=== PATIENT | male | born 1975 ===

== ENCOUNTER 2022-12-10 07:01 | Emergency (ER) | payer OTHER, SELFPAY ==
[2022-12-10 07:06] VITALS: BP 165/88; PULSE 115; RESP 22; TEMP 37.2; O2SAT 96
[2022-12-10 07:22] VITALS: O2SAT 98
--- NOTE | 2022-12-10 07:23 | PC.NURSE ---
Pt c/o body aches, lethargy, congestion & fever. States recenetly went to a concert & voices concerns of COVID. Pt with mask
--- NOTE | 2022-12-10 07:30 | ED.URI ---
HPI - URI/Sore Throat General Chief Complaint: Upper Respiratory Infection Stated Complaint: bodyaches Time Seen by Provider: 12/10/22 07:14 History of Present Illness HPI Narrative: Patient is a 47-year-old male who presents ER with a concern for an upper respiratory infection. Reports that he began having sinus congestion and sore throat. He has been restless throughout the night. He is feeling febrile today. He was recently at a concert over the weekend. No known sick contacts. No chest pain or chest pressure. No exertional fatigue or dyspnea. Related Data Allergies Allergy/AdvReac Type Severity Reaction Status Date / Time No Known Allergies Allergy Verified 12/10/22 08:18 Review of Systems Review of Systems: All systems reviewed & are unremarkable except as noted in HPI and below Constitutional: Constitutional: Reports chills, Reports fatigue and Reports fever(s) ENT: Reports nasal congestion and Reports sore throat Cardiovascular: Cardiovascular: Reports no additional cardiovascular complaints Respiratory: Respiratory: Reports cough, Denies excessive phlegm production, Denies dyspnea and Denies wheezing PMFSH Past Medical History Medical History (Updated 12/10/22 @ 09:19 by Oscar Riojas MD) Anxiety Surgical History Surgical History (Updated 12/10/22 @ 07:34 by Oscar Riojas MD) History of back surgery Exam Narrative: GENERAL: Well-appearing, well-nourished, and in no acute distress. HEAD: Normocephalic, atraumatic. CHEST: Clear to auscultation. No respiratory distress. HEART: Regular rate and rhythm. Normal peripheral pulses. EXTREMITIES: Normal range of motion. No edema. SKIN: Warm, dry, no rash. NEURO: Alert and oriented x3. PSYCH: Normal mood and affect. Course Course Emergency Course: Patient febrile here but took Tylenol just prior to arrival. No abnormal lung sounds. No hypoxia. [place] appropriate for discharge. Will send home with Meghan. Vital Signs Vital signs: Vital Signs Temperature 99 F 12/10/22 07:06 Pulse Rate 115 H 12/10/22 07:06 Respiratory Rate 22 H 12/10/22 07:06 Blood Pressure 165/88 H 12/10/22 07:06 Pulse Oximetry 96 12/10/22 07:06 Oxygen Delivery Room Air 12/10/22 07:06 Temperature 100.5 F H 12/10/22 08:15 Pulse Rate 108 H 12/10/22 08:15 Respiratory Rate 18 12/10/22 08:15 Blood Pressure 127/75 12/10/22 08:15 Pulse Oximetry 96 12/10/22 08:15 Oxygen Delivery Room Air 12/10/22 07:22 MDM - URI/Sore Throat MDM Narrative Medical decision making narrative: Medical decision making narrative: -Presentation: 47-year-old male presents with fever/sinus congestion and sore throat. -DDX includes but is not limited to: URI, COVID, flu, pneumonia. -Co-morbidities complicating care: None -Social determinants of health: Patient does nahum. -External Chart Review: History from 11/2016 -Hx from independent Sources: Patient -Independent interpretation of studies: COVID-positive. -Discussion of Management/Consultants: none -Dx tests considered but not ordered: none -Procedures: none -Interventions: none -Shared decision making / Disposition: Discussed supportive care treatment at home including Tylenol/ibuprofen/hydration. Discussed masking for 5 days after self-isolation for 5 days -RX: Paxlovid. Lab Data Labs: Lab Results 12/10/22 Range/Units 07:11 Influenza A (RT-PCR) Negative (Negative) Influenza B (RT-PCR) Negative (Negative) SARS-CoV-2 RNA (RT-PCR) Positive A (Negative) Discharge Plan Discharge Clinical Impression: COVID-19 Patient Disposition: Home, Self-Care Condition: Stable Instructions: COVID-19 (Coronavirus Disease 2019) (ED) Additional Instructions: You should self isolate until 12/14/2022, you should then wear a mask when out in public for the next 5 days after that. You may take Paxlovid to help with your symptoms. Follow-up wi
[2022-12-10 08:15] VITALS: BP 127/75; PULSE 108; RESP 18; TEMP 38.1; O2SAT 96
[2022-12-10 08:17] VITALS: BP 112/62; O2SAT 97
[2022-12-10 08:30] VITALS: O2SAT 98
--- NOTE | 2022-12-10 08:48 | PC.NURSE ---
RN called lab inquiring about COVID result. Per solar lab technician it should be done in 13 minutes. Pt & informed
[2022-12-10 08:56] LABS: Influenza A QL RT-PCR Negative (Negative); Influenza B QL RT-PCR Negative (Negative); SARS-CoV-2 RNA PCR Positive (Negative)
== END 2022-12-10 09:40 | disposition home or self-care (01) ==
PROVIDERS: Emergency Provider Emergency Medicine; PCP Internal Medicine
DX: U07.1 COVID-19 (principal)
CPT/HCPCS: 87636; 99283

== ENCOUNTER 2023-10-06 11:15 | Outpatient (CLI) | payer OTHER, SELFPAY ==
[2023-10-06 11:57] LABS: Basophils Absolute Auto 0.1 K/mm3 (0.0-0.1); Basophils Percent Auto 0.9 % (0.2-1.2); Eosinophils Absolute Auto 0.1 K/mm3 (0-0.3); Eosinophils Percent Auto 1.1 % (0-4.4); Hematocrit 51.8 % (42.0-52.0); Hemoglobin 17.4 g/dL (14.0-18.0); Immature Granulocyte Absolute 0.07 K/mm3 (0.00-0.031); Immature Granulocyte Percent A 0.6 % (0-0.5); Lymphocytes Absolute Auto 2.06 K/mm3 (0.9-3.2); Lymphocytes Percent Auto 16.2 % (18.3-44.2); Mean Corpuscular HGB Conc 33.6 g/dl (32-36); Mean Corpuscular Hemoglobin 31.4 pg (26-34); Mean Corpuscular Volume 93.3 fl (80-100); Mean Platelet Volume 9.6 fl (7.4-10.4); Monocytes Absolute Auto 0.9 K/mm3 (0.1-0.6); Monocytes Percent Auto 6.8 % (2.6-8.5); Neutrophils Absolute Auto 9.5 K/mm3 (1.3-6.7); Neutrophils Percent Auto 74.4 % (45.5-73.1); Platelet Count Result 381 k/mm3 (150-375); Red Blood Count 5.55 M/mm3 (4.6-6.20); Red Cell Distribution Width 14.7 % (11.5-14.5); White Blood Count 12.7 K/mm3 (4.5-10.0)
== END 2023-10-06 11:16 | disposition home or self-care (01) ==
LOC: ANHLAB 11:17
PROVIDERS: PCP Internal Medicine; Visit Provider Nurse Practitioner
DX: R53.83 Other fatigue (principal); K92.1 Melena
CPT/HCPCS: 36415; 85025

== ENCOUNTER 2023-10-21 07:00 | Outpatient (NON) | payer OTHER, SELFPAY | END 2023-10-21 07:01 | disposition home or self-care (01) | LOC: ANHLAB 10-23 09:04 | PROVIDERS: PCP Internal Medicine; Visit Provider Internal Medicine Gastroenterology | DX: K92.1 Melena (principal) | CPT/HCPCS: 88305 ==

== ENCOUNTER 2023-10-21 10:22 | Day surgery (SDC) | payer OTHER, SELFPAY ==
[2023-10-07 10:39] VITALS: BMI 33.6
[2023-10-12 10:25] VITALS: BMI 33.5
--- NOTE | 2023-10-21 11:00 | WPDHPUPDATE1 ---
History and Physical Update Update Date/Time: 10/21/23 11:00 History and Physical has been reviewed, including an updated exam of the patient. There are NO changes in the patient's condition. Risks, benefits, and alternatives have been discussed and questions answered. Patient agrees to proceed with procedure.
[2023-10-21 11:02] VITALS: BP 119/80; PULSE 57; RESP 18; TEMP 36.6; O2SAT 98
[2023-10-21] MEDS: LACTATED RINGERS 1,000 ML 150 ML IV CONT (11:07)
--- NOTE | 2023-10-21 11:45 | WPDANESEPPF ---
Anes - Initial Pre Proc Eval Procedure: Operation Date: 10/21/23 12:00 Proposed Procedures p Diagnostic Colonoscopy - Syed Ramsay MD Date/Time: 10/21/23 11:45 Surgeon: Syed Ramsay MD Pre Op Diagnosis: Melena, other fatigue Patient Data Age: 48 Gender: M Height: 1.83 m Weight: 114.55 kg Last Vital Signs Temp 36.6 C 10/21/23 11:02 Pulse 57 L 10/21/23 11:02 Resp 18 10/21/23 11:02 BP 119/80 10/21/23 11:02 Pulse Ox 98 10/21/23 11:02 O2 Del Method Room Air 10/21/23 11:02 Allergies Allergy/AdvReac Type Severity Reaction Status Date / Time No Known Allergies Allergy Verified 10/21/23 10:50 Home Medications Medication Instructions Recorded Confirmed Type albuterol sulfate 2 mg tablet 2 mg PO .prn 10/06/23 10/12/23 History alprazolam 2 mg tablet 2 mg PO BID 10/06/23 10/21/23 History hydrocodone bitartrate 10 mg 10 mg PO Q12H 10/06/23 10/21/23 History capsule, oral only, extended rel 12 hr Patient hx anesthesia problems: none Family hx anesthesia problems: none Results Review: All pre-operative results and documents have been reviewed as part of the pre-operative evaluation. [facility] Past Medical History Medical History (Updated 10/21/23 @ 11:45 by Jase Ramirez MD) Anxiety Chronic back pain Snoring Surgical History Surgical History History of back surgery Social History Social History Smoking status: Never smoker Alcohol intake: never Substance use: current Substance use type: marijuana Living arrangements: alone Spiritual care concerns: No Anes - Eval Final PreProcedure Day of Procedure 10/21/23 11:45 Patient weight: obese Heart: regular rate and rhythm Lungs: clear to auscultation Airway: Mallampati scale class II Neurological: alert and oriented Last oral intake: >/= 8 hours ASA classification: III Emergent: no Anesthetic plan: proceed Anesthesia type and monitoring: general GIVS and standard monitoring Results Review: All pre-operative results and documents have been reviewed as part of the pre-operative evaluation. Informed Consent: The patient's anesthetic plan and its attendant risks and benefits were discussed with the patient/family/POA. Questions were solicited and answers provided to the satisfaction of the patient/family/POA.
[2023-10-21 12:08] VITALS: BP 100/55; PULSE 67; RESP 16; O2SAT 95
[2023-10-21 12:18] VITALS: BP 101/61; PULSE 66; RESP 16; O2SAT 98
[2023-10-21 12:28] VITALS: BP 112/66; PULSE 58; RESP 18; O2SAT 99
--- NOTE | 2023-10-21 12:48 | WPDANESPN ---
Anes - Prog Note Post-Op Date/Time: 10/21/23 12:48 Cardiovascular status: normal Respiratory status: normal Airway patency: baseline Mental status: baseline Post-Op hydration status: normal Vital Signs: Last Vital Signs Temp 36.6 C 10/21/23 11:02 Pulse 58 L 10/21/23 12:28 Resp 18 10/21/23 12:28 BP 112/66 10/21/23 12:28 Pulse Ox 99 10/21/23 12:28 O2 Del Method Room Air 10/21/23 12:28 Pain Score (VAS): 0/10 I/O: Intake & Output 10/20/23 10/21/23 10/21/23 23:59 07:59 15:59 Intake Total 600 Balance 600 Patient Feedback: Patient satisfied with anesthetic care.
== END 2023-10-21 12:36 | disposition home or self-care (01) ==
PROVIDERS: PCP Internal Medicine; Visit Provider Internal Medicine Gastroenterology
PROC: 0DJD8ZZ Inspection of Lower Intestinal Tract, Via Natural or Artificial Opening Endoscopic (ICD-10-PCS; CPT 45378; principal; 2023-10-21 12:00)
DX: K92.1 Melena (principal); D12.5 Benign neoplasm of sigmoid colon; K57.30 Diverticulosis of large intestine without perforation or abscess without bleeding; K64.8 Other hemorrhoids
CPT/HCPCS: 45385

== ENCOUNTER 2024-09-29 09:37 | Emergency (ER) | payer OTHER, SELFPAY ==
--- NOTE | ~2024-09-29 | CT_ITS ---
EXAMINATION: CT abd pelvis lumbar wo con DATE: 09/29/2024 10:44 INDICATION: Left flank pain. TECHNIQUE: Computed tomography (CT) of the abdomen, pelvis and lumbar spine was performed without int ravenous contrast. The dose-length product was 826.37 mGy-cm. Automated exposure control and iterativ e reconstruction technique were employed. COMPARISON: CT lumbar spine dated 11/24/2016 FINDINGS: Abdomen/pelvis: Lung bases unremarkable. Heart size is normal. No significant pleural or pe ricardial effusion. Small fat-containing umbilical hernia. Enlarged prostate gland. Punctate 1 mm non obstructing left renal stone. No hydronephrosis or ureteral stone. Nonobstructive bowel gas pattern. The liver, spleen, pancreas, adrenal glands and right kidney are unremarkable. No significant vascula r abnormality. No lymphadenopathy. Lumbar spine: Chronic left L5 pars interarticularis defect. There is disc narrowing at L3-4 and L4-5. There is levocurvature of the lumbar spine. There is facet hypertrophy at L4-5 and L5-S1. IMPRESSION: 1. Nonobstructing punctate 1 mm left renal stone. 2: Mild-moderate lumbar spondylosis. Reviewed, dictated and finalized at location B.
[2024-09-29 09:40] VITALS: BP 138/97; PULSE 93; RESP 18; O2SAT 97
[2024-09-29 09:48] VITALS: BP 138/97; PULSE 93; RESP 18; TEMP 36.6; O2SAT 97
[2024-09-29 09:58] LABS: Basophils Absolute Auto 0.1 K/mm3 (0.0-0.1); Basophils Percent Auto 0.9 % (0.2-1.2); Eosinophils Absolute Auto 0.3 K/mm3 (0-0.3); Eosinophils Percent Auto 2.4 % (0-4.4); Hematocrit 49.1 % (42.0-52.0); Hemoglobin 16.9 g/dL (14.0-18.0); Immature Granulocyte Absolute 0.05 K/mm3 (0.00-0.031); Immature Granulocyte Percent A 0.4 % (0-0.5); Lymphocytes Absolute Auto 1.38 K/mm3 (0.9-3.2); Lymphocytes Percent Auto 10.2 % (18.3-44.2); Mean Corpuscular HGB Conc 34.4 g/dl (32-36); Mean Corpuscular Hemoglobin 31.5 pg (26-34); Mean Corpuscular Volume 91.6 fl (80-100); Monocytes Percent Auto 7.3 % (2.6-8.5); Neutrophils Absolute Auto 10.7 K/mm3 (1.3-6.7); Neutrophils Percent Auto 78.8 % (45.5-73.1); Platelet Count Result 278 k/mm3 (150-375); Red Blood Count 5.36 M/mm3 (4.6-6.20); Red Cell Distribution Width 14.6 % (11.5-14.5); White Blood Count 13.5 K/mm3 (4.5-10.0)
[2024-09-29 10:00] LABS: Add Urine Microscopic? NO; Appearance Urine Clear (Clear); Bilirubin Urine Negative (Negative); Blood Urine Negative (Negative); Color Urine Yellow (Yellow); Glucose Urine UA Negative (Negative); Ketones Urine Negative (Negative); Leukocyte Esterase Ur Negative LEU/UL (Negative); Nitrate Urine Negative (Negative); Protein Urine Negative (Negative); Specific Grav Ur 1.015 (1.001-1.035); Urobilinogen Urine 0.2 mg/dL (<2.0)
[2024-09-29 10:07] LABS: Alanine Aminotransferase 25 U/L (6-50); Albumin Level 4.8 g/dL (3.5-5.1); Alkaline Phosphatase 71 U/L (38-126); Anion Gap 9 mmol/L (4-12); Aspartate Amino Transferase 26 U/L (17-59); Bilirubin,Total 0.6 mg/dL (0.2-1.3); Blood Urea Nitrogen 13 mg/dL (9-20); Calcium 9.3 mg/dL (8.4-10.2); Carbon Dioxide 24 mmol/L (22-30); Chloride 105 mmol/L (98-107); Estimated CRCL calculation 92 ml/min; Estimated Glomerular Filt Rate > 60; Glucose 107 mg/dL (65-110); Potassium 4.5 mmol/L (3.4-5.0); Sodium 138 mmol/L (137-145)
--- NOTE | 2024-09-29 10:09 | ED_ITS ---
HPI - Back Pain/Injury General Chief Complaint: Back Pain/Injury Stated Complaint: back pain Time Seen by Provider: 09/29/24 09:39 Source: patient Mode of arrival: ambulatory Limitations: no limitations History of Present Illness HPI Narrative: Patient is a 48-year-old male who presents the ED with report of L flank pain. Patient reports he woke up around 4:00 a.m. this morning with the pain. Present in his left flank, does radiate slightly into his left-sided abdomen. He has history of chronic neck and back pain. Took 1 of his home Ker[place] this morning, but denied improvement. Pain is worse with any type of movement. 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 Denies nausea, vomiting, dysuria, hematuria, fevers, history of kidney stones. Related Data Home Medications ?Medication ?Instructions ?Recorded ?Confirmed ?Last Taken ?Type albuterol sulfate 2 mg tablet 2 mg PO .prn 10/06/23 10/12/23 Unknown History alprazolam 2 mg tablet 2 mg PO BID 10/06/23 10/21/23 10/12/23 History hydrocodone bitartrate 10 mg 10 mg PO Q12H 10/06/23 10/21/23 10/12/23 History capsule, oral only, extended rel 12 hr Allergies Allergy/AdvReac Type Severity Reaction Status Date / Time No Known Allergies Allergy Verified 09/29/24 09:52 Review of Systems 2 Review of Systems: All systems reviewed & are unremarkable except as noted in HPI. All systems reviewed & are unremarkable except as noted in HPI and below PMFSH Past Medical History Medical History Snoring Chronic back pain Anxiety Surgical History Surgical History History of back surgery Social History Social History Smoking status: Never smoker Alcohol intake: never Substance use: current Substance use type: marijuana Living arrangements: alone Spiritual care concerns: No Exam 2 Narrative: GENERAL: Mildly uncomfortable appearing, well-nourished, non-toxic, in no acute distress. HEAD: Normocephalic, atraumatic. RESPIRATORY: Airway patent, respirations nonlabored. Clear to auscultation bilaterally, no rales, rhonchi, wheezing. CARDIOVASCULAR: Regular rate and rhythm without murmurs, rubs, or gallops. ABDOMINAL: Soft, no significant tenderness throughout abdomen, nondistended. Normoactive BS. MUSCULOSKELETAL: Moves all extremities. No gross deformities. Tenderness to palpation in left mid back region, discomfort reported with any movement. No significant midline spinal tenderness. No palpable bony deformities. SKIN: Warm, dry, normal color. NEURO: A&O X3. Speech clear. No ataxic movements. PSYCHIATRIC: Appropriate mood and affect. Normal interaction. Course Vital Signs Vital signs: Vital Signs Pulse Rate 93 09/29/24 09:40 Respiratory Rate 18 09/29/24 09:40 Blood Pressure 138/97 H 09/29/24 09:40 Pulse Oximetry 97 09/29/24 09:40 Oxygen Delivery Room Air 09/29/24 09:40 Temperature 97.8 F 09/29/24 09:48 Pulse Rate 68 09/29/24 10:58 Respiratory Rate 18 09/29/24 10:58 Blood Pressure 125/77 09/29/24 10:58 Pulse Oximetry 97 09/29/24 10:58 Oxygen Delivery Room Air 09/29/24 09:40 MDM - Back Pain/Injury MDM Narrative Medical decision making narrative: Patient presented to ED with left flank pain began this morning. History of chronic back and neck pain, but this feels different. No history of kidney stones. Vital signs are stable upon arrival. Patient mildly uncomfortable appearing. Pain medication given. CBC with white blood cell count of 13.5. Stable H& H. CMP is unremarkable. UA is clear, no evidence of blood. CT scan of abdomen/pelvis was obtained and shows left renal stone, 1 mm, no active ureteral stones. No other acute abnormalities. Does show [id number] lumbar spondylosis, consistent with hx of chronic back pain. Patient denying improvement with morphine and Valium. Will give additional pain control including Toradol and muscle relaxers. Suspicious for musculoskeletal etiology. No evidence of cord compression or cauda equina. Low suspicion for pulmonary etiology. Patient denying shortness of breath, cough, hypoxia. PERC negative. Discussed overall reassuring w/u. Updated patient on left renal stone, but advised this is likely not causing his pain. Significant other at bedside does report that pain has been ongoing for quite some time. Feel patient safe for d/c home with pain control. Advised close f/u with PCP for further eval. Given strict return precautions. He agrees with plan. Feels comfortable going home. Discharged in stable condition. Medical Records Attestation: I reviewed the patient's medical records. Lab Data Attestation: I reviewed the patient's lab results. 09/29/24 09:52 09/29/24 09:52 Labs: Lab Results 09/29/24 Range/Units 09:52 WBC 13.5 H (4.5-10.0) K/mm3 RBC 5.36 (4.6-6.20) M/mm3 Hgb 16.9 (14.0-18.0) g/dL Hct 49.1 (42.0-52.0) % MCV 91.6 (80-100) fl MCH 31.5 (26-34) pg MCHC 34.4 (32-36) g/dl RDW 14.6 H (11.5-14.5) % Plt Count 278 (150-375) k/mm3 MPV 9.0 (7.4-10.4) fl Immature Gran % (Auto) 0.4 (0-0.5) % Neut % (Auto) 78.8 H (45.5-73.1) % Lymph % (Auto) 10.2 L (18.3-44.2) % [place] % (Auto) 7.3 (2.6-8.5) % Eos % (Auto) 2.4 (0-4.4) % Baso % (Auto) 0.9 (0.2-1.2) % Lymph # (Auto) 1.38 (0.9-3.2) K/mm3 [place] # (Auto) 1.0 H (0.1-0.6) K/mm3 Eos # (Auto) 0.3 (0-0.3) K/mm3 Baso # (Auto) 0.1 (0.0-0.1) K/mm3 Abs Immat Gran (auto) 0.05 H (0.00-0.031) K/mm3 Absolute Neuts (auto) 10.7 H (1.3-6.7) K/mm3 Absolute Nucleated RBC 0.000 (0.0-0.012) K/mm3 Nucleated RBC % 0.0 (0.0-0.2) % Sodium 138 (137-145) mmol/L Potassium 4.5 (3.4-5.0) mmol/L Chloride 105 (98-107) mmol/L Carbon Dioxide 24 (22-30) mmol/L Anion Gap 9 (4-12) mmol/L BUN 13 (9-20) mg/dL Creatinine 0.95 (0.7-1.3) mg/dL Estim Creat Clear Calc 92 ml/min Estimated GFR > 60 (59 - ) Glucose 107 (65-110) mg/dL Calcium 9.3 (8.4-10.2) mg/dL Total Bilirubin 0.6 (0.2-1.3) mg/dL AST 26 (17-59) U/L ALT 25 (6-50) U/L Alkaline Phosphatase 71 (38-126) U/L Total Protein 8.0 (6.3-8.2) g/dL Albumin 4.8 (3.5-5.1) g/dL Urine Color Yellow (Yellow) Urine Appearance Clear (Clear) Urine pH 5.0 (5.0-9.0) Ur Specific Bledsoe 1.015 (1.001-1.035) Urine Protein Negative (Negative) mg/dL Urine Glucose (UA) Negative (Negative) mg/dL Urine Ketones Negative (Negative) mg/dL Ur Blood (Man) Negative (Negative) Urine Nitrate Negative (Negative) Urine Bilirubin Negative (Negative) Urine Urobilinogen 0.2 (<2.0) mg/dL Leukocyte Esterase Rfl Negative (Negative) BELLA/UL Imaging Data Attestation: I personally reviewed and interpreted this imaging study as follows: Radiologist's impression: ITS Impressions Miscellaneous CT Procedure 09/29/24 11:25 IMPRESSION: 1. Nonobstructing punctate 1 mm left renal stone. 2: Mild-moderate lumbar spondylosis. Discharge Plan Discharge Clinical Impression: Strain of lumbar region Qualifiers: Encounter type: initial encounter Qualified Code(s): S39.012A - Strain of muscle, fascia and tendon of lower back, initial encounter Patient Disposition: Home Condition: Stable Instructions: Antibiotic Form, Acute Low Back Pain (ED), Flank Pain (ED), Lower Back Exercises (ED) Additional Instructions: Continue Tylenol/your home norco and Ibuprofen as needed for pain. You may take 600mg of ibuprofen every 6 hours. You may use ice/heat, lidocaine patches to area of pain. Take muscle relaxers as needed and prescribed. Recommend taking these at night as they may cause sedation. Do not drive, operate heavy machinery, drink alcohol while on muscle relaxers as this may cause further sedation. Recommend limiting heavy lifting, but avoid complete bed rest. Recommend gentle movements throughout the day. Follow-up with your primary care doctor for further evaluation. Return to the ED if you experience worsening or severe pain, recurrent injury, numbness in groin or legs, going to the bathroom without meaning to, unable to keep down food or drink, or any other symptoms of concern. Patient Language: Romanian Prescriptions: New methocarbamol 750 mg tablet 1,500 mg PO TID PRN (Reason: muscle spasm) Qty: 15 0RF lidocaine 5 % adhesive patch,medicated 1 patch topical DAILY Qty: 15 0RF Rx Instructions: leave on most painful area for up to 12 hrs No Action alprazolam 2 mg tablet 2 mg PO BID hydrocodone bitartrate 10 mg capsule, oral only, ER 12hr 10 mg PO Q12H albuterol sulfate 2 mg tablet 2 mg PO .prn Rx Instructions: seasonal Follow-up/Referrals: Britton,Galileo Schmitt MD [Primary Care Provider] - Time of Disposition: 12:30
[2024-09-29] MEDS: ONDANSETRON INJ 4 MG/2 ML VIAL IV PUSH (10:14)
[2024-09-29] MEDS: MORPHINE SULFATE (*CRX) 4 MG/ML INJ IV PUSH (10:14)
--- OUTSIDE RECORDS SUMMARY | 2024-09-29 10:19 | XMS_ITS | Clinical Summary ---
Author Organization [facility] Address [address] [place] [address] Care Team Providers Care Hotel Service Manager Name Role Phone Galileo Jarquin MD Primary Care Provider Galileo Jarquin MD Unavailable [phone] Source Comments [facility],non-owned Affiliates and Associated Physician Practices is amultiple site organization consisting of ambulatory clinics and hospital sitesin [place] and [place]. This disclosure is being madepursuant to the Care Everywhere program and may not contain all information available regarding this patient. Last updated 18.[facility] Allergies No known active allergies Medications * Be aware that medications may not be up to date on this document. Alwaysverify current medications with the patient. ALPRAZolam (XANAX) 2 MG tablet 0.5 (one-half) tablet 3 times daily 1 6 Active cyclobenzaprine (FLEXERIL) 10 MG tablet 1 (one) tablet 3 times daily 1 6 Active HYDROcodone-acet aminophen (NORCO) 7.5-325 MG tablet TAKE ONE TABLET FOUR TIMES A DAY FOR DX M54.5 AND M51.27 1 Active sildenafil (VIAGRA) 100 MG tablet TAKE 1 TABLET BY MOUTH NEEDED ONE HOUR BEFORE SEXUAL ENCOUNTER 1 Active tamsulosin (Flomax) 0.4 MG capsuleIndicatio ns:Benign Prostatic Hypertrophy Take 1 (one) capsule by mouth once daily At the same time every day after a meal. Reasons: Benign Enlargement of Prostate 90 capsule 4 Active Encounters Date Type Department Care Team Description 09/27/2024 Telephone [facility] - Urology [address] [place] [address] Grisel Joyce DO Surgery Scheduling (Attempted to reach the patient to schedule surgery/procedure with Grisel Joyce DO. Left voicemail to return my call ALEXANDRA, sendign NPL as I have yet to hear back in over 30 days. Cassandra Pack 09/27/2024 4:55 PM ) 08/16/2024 Telephone [facility] - Urology [address] [place] [phone] Grisel Joyce DO Surgery Scheduling (Attempted to reach the patient to schedule surgery/procedure with Grisel Joyce DO. Left voicemail to return my call ALEXANDRA Trujillogerardo Pack 08/16/2024 9:47 AM ) 08/11/2024 2:30 PM CDT Office Visit [facility] - Urology [address] [place] [address] [address] [place] [id number] Grisel Joyce DO Impotence due to erectile dysfunction (Primary Dx); Erectile dysfunction due to diseases classified elsewhere; Neuropathy; Pre-op testing 08/11/2024 Travel 07/07/2024 Telephone [facility] - Centralized Scheduling [address] [place] [address] Grisel Joyce DO Appointment (Spk to Lauren, he is scheduled for July for yearly follow-up and medication refill. He is currently out of medication and would like to receive a prescription that would take him to his upcoming appointment. if possible please send prescription to Lauren's pharmacy. Any other questions or concerns, please reach out to him for assistance) 07/07/2024 Travel from Last 3 Months Social History Tobacco Use Types Packs/Day Years Used Date Smoking Tobacco: Former Smokeless Tobacco: Never Tobacco Cessation:Counseling Given: Not Answered Alcohol Use Standard Drinks/Week Comments No 0 (1 standard drink = 0.6 oz pur e alcohol) Sex and Gender Information Value Date Recorded Sex Assigned at Not on file Legal Sex Male 2:23 PM [employer]EL[employer] Gender Identity Not on file Sexual Orientation Not on file Last Filed Vital Signs Vital Sign Reading Time Taken Comments Blood Pressure 114/74 08/11/2024 2:19 PM CDT Pulse 74 08/11/2024 2:19 PM CDT Temperature 36.7 C (98.1 F) 08/11/2024 2:19 PM CDT Respiratory Rate 18 08/11/2024 2:19 PM CDT Oxygen Saturation 95% 08/11/2024 2:19 PM CDT Inhaled Oxygen Concentration - - Weight 97.4 kg (214 lb 12.8 oz) 08/11/2024 2:19 PM CDT Height 182.9 cm (6') 08/11/2024 2:19 PM CDT Body Mass Index 29.13 08/11/2024 2:19 PM CDT Plan of Treatment Health Maintenance Due Date Last Done Comments COLOGUARD (AGES 45-75) - COLON CA SCREENING 1975 COLON MONITORING 1975 COLONOSCOPY - COLON CA SCREENING 1975 CT COLONOGRAPHY - COLON CA SCREENING 1975 Colorectal Cancer Screening 1975 FIT - COLON CA SCREENING 1975 FLEX SIG - COLON CA SCREENING 1975 LIPID TESTING 1975 HIV SCREENING 10/06/1990 HEPATITIS C SCREENING 10/02/1993 DTAP/TDAP/TD VACCINES (1 - Tdap) 10/06/1994 HEPATITIS B VACCINE (1 of 3 - 19+ 3-dose series) 10/06/1994 COVID-19 VACCINE (2 - season) 2023 12/26/2020 DEPRESSION SCREENING 04/20/2024 INFLUENZA VACCINE (Season Ended) 2024 ZOSTER VACCINE (1 of 2) 10/06/2025 SCREENING FOR DIABETES 07/19/2027 , 07/18/2024, 03/17/2024, Additional history exists HIB VACCINE Aged Out No longer eligi ble based on patient's age to complete this topic HPV VACCINE Aged Out No longer eligi ble based on patient's age to complete this topic MENINGOCOCCAL (Group B) VACCINE SHARED DECISION-MAKING Aged Out No longer eligible based on patient's age to complete this topic MENINGOCOCCAL GROUPS A/C/Y/W VACCINE Aged Out No longer eligible based on patient's age to complete this topic PNEUMOCOCCAL VACCINE Aged Out No long er eligible based on patient's age to complete this topic Procedures Procedure Name Priority Date/Time Associated Diagnosis Comments CULTURE URINE Routine 08/11/2024 4:04 PM CDT Pre-op testing from Last 3 Months Results * CULTURE URINE (08/11/2024 4:04 PM CDT) Culture [facility] Comment: CULTURE, URINE, ROUTINE Micro Number: [id number] Test Status: Final Specimen Source: Urine, clean catch Specimen Quality: Adequate Result: Less than 10,000 CFU/mL of single Gram positive organism isolated. No further testing will be performed. If clinically indicated, recollection using a method to minimize contamination, with prompt transfer to Urine Culture Transport Tube, is recommended. Test Performed at: [id number] [id number] BAUDILIO WOOD MD Urine URINE SPECIMEN OBTAINED BY CLEAN CATCH PROCEDURE / Unknown 08/11/2024 4:04 PM CDT 08/12/2024 1:04 AM CDT us Grisel Joyce DO LAB - MICROBIOLOGY ORDERAB LES Final Result [address] [id number] from Last 3 Months Insurance [facility] SELF PAY NO INSURANCE Member Subscriber Plan / Payer (Ef fective for All Dates) Name:Lauren Cervantes Member ID:Not on file Relation to Subscriber:Not on file Name:LAUREN CERVANTES Subscriber ID:Not on file (Home) Address: [address] [place] [address] Payer ID:Not on file Group ID:Not on file Type:Self Pay Address: [place], [place] [facility] SELF PAY NO INSURANCE Member Subscriber Plan / Payer (Ef fective for All Dates) Name:Lauren Cervantes Member ID:Not on file Relation to Subscriber:Not on file Name:LAUREN CERVANTES Subscriber ID:Not on file (Home) Address: [address] [place] [address] Payer ID:Not on file Group ID:Not on file Type:Self Pay Address: [place], [place] * Guarantor: LAUREN CERVANTES Account Type Relation to Patient Date of Phone Billing Address Personal/Family 1975 [address] [place] [address] [facility] SELF PAY NO INSURANCE Member Subscriber Plan / Payer (Ef fective for All Dates) Name:Lauren Cervantes Member ID:Not on file Relation to Subscriber:Not on file Name:LAUREN CERVANTES Subscriber ID:Not on file (Home) Address: [address] [place] [address] Payer ID:Not on file Group ID:Not on file Type:Self Pay Address: [place], [place] Care Teams Hotel Service Manager Relationship Specialty Start Date End Date Galileo Jarquin MD [address] [place] [phone] PCP - General 10/12/20 Galileo Jarquin MD [address] [place] [phone] Internal Medicine 10/12/20
[2024-09-29] MEDS: diazePAM INJ (*CRX) 10 MG/2 ML SYRINGE 2.5 MG IV PUSH (10:57)
[2024-09-29 10:58] VITALS: BP 125/77; PULSE 68; RESP 18; O2SAT 97
--- OUTSIDE RECORDS SUMMARY | 2024-09-29 11:06 | XMS_ITS | Data Portability ---
Author Organization [facility] [employer], Main Office Address [address] [place] [address] Assessment No assessment recorded. Plan of Treatment Reminders Order Date Submit Date Provider Last Modified By Organization Details Last Modified Time Details Appointments None recorded. Lab erythropoi etin, serum 2024 025 [facility] Out[facility], [address] [place], [address], 5 14:25:33 PSA, serum or plasma 2024 025 [facility] Out[facility], [address] [place], [address], 5 23:11:38 CBC w/ auto diff 2024 025 [facility], [address] [place], [address], 5 23:11:37 CMP, serum or plasma 2024 025 [facility], [address] [place], [address], 5 23:11:36 lipid panel, serum 2024 025 [facility], [address] [place], [address], 5 23:11:35 TSH, serum or plasma 2024 025 [facility], [address] [place], [address], 5 23:11:40 T4, free, serum 2024 025 [facility], [address] [place], [address], 5 23:11:39 drug screen, urine 2024 025 [email or web address], [address] [place], [address], 5 23:11:41 PSA, serum or plasma [email or web address] Out[facility], [address] [place], [address], 4 13:45:49 drug screen, urine 2022 023 [email or web address], [address], [place], [address], 3 18:34:10 PSA, serum or plasma 2022 023 [facility], [address] [place], [address], 3 20:19:15 CMP, serum or plasma 2022 023 [facility], [address] [place], [address], 3 20:19:13 CBC w/ auto diff 2022 023 [facility], [address] [place], [address], 3 20:19:14 lipid panel, serum 2022 023 [facility], [address] [place], [address], 3 20:19:12 T4, free, serum 2022 023 [email or web address] [facility] Out[facility] Lab, [address] [place], [address], 3 10:16:54 TSH, serum or plasma 2022 023 [facility], [address] [place], [address], 3 10:16:54 drug screen, urine 2022 023 [email or web address] [id number] [facility], [facility] Pooja Poole, [place], [address], 3 20:19:16 Referral None recorded. Procedures None recorded. Surgeries None recorded. Imaging None recorded. Medication Orders losartan 50 mg tablet 2024 025 [facility] #[id number], [address] [place], [address], 5 16:02:05 Patient TargetsNo targets recorded. Patient Instructions Encounter Date Encounter Id Patient Instructions Last Modified By Organization Details Last Modified Time 09/12/2022 [id number] risk assessment* [email or web address] Not availabl e 09/12/2022 15:48:44 INFLUENZA VACCIN E Recommended today, but patient declined TD/TDAP Patient will get at local pharmacy/health department PNEUMONIA VACCINE Recommended at age 65 SHINGLES Not indicated PSA No screening necessary patient is up to date COLORECTAL SCREENING Recommended today DEPRESSION SCREENING Negative BMI Overweight try to lose 10% of your body weight NUTRITION Eat Heart Healthy Diet PHYSICAL ACTIVITY Need more exercise/physical activity ALCOHOL USE Occasional/Social Use TOBACCO USE non smoker LUNG CANCER SCREENING Non Smoker-not indicated SEXUALLY ACTIVE HEPATITIS C SCREENING Not indicated GLUCOSE SCREENING up to date LIPID SCREENING up to date [email or web address] Not available 09/12/2022 15:22:39 Evaluation risk assessment stable follow-up for transient hypertension-chroni c pain syndrome and more recently obesity class one. Overall doing well. Is overdue for blood test. Does need a CBC, CMP, lipid, thyroid and PSA. Does need a Cologuard test as well. Recheck blood pressure in one week. If remains elevated will need on medication. Overall is otherwise doing well. Continue on current Rx recheck back in six months Cologuard [email or web address] Not available 09/12/2022 15:48:30 04/14/2023 [id number] Follow-up asthma-chronic pain syndrome- obesity class one-moderately elevated PSA for age. Will continue on current medication will check a PSA. Reduce her is alprazolam from 2 mg twice daily to 1 mg t.i.d.. Continue on other medications the same way. Will also check a urine drug screen. Portions of the record may have been created with voice recognition software. Occasional wrong-word or [id number] substitutions may have occurred due to the inherent limitations of voice recognition software. Read the chart carefully and recognize, using context, where substitutions have occurred. [email or web address] Not available 04/14/2023 14:58:59 06/16/2024 [id number] Essential hypertension, anxiety disorder, disorder of the prostate, asthma, chronic pain syndrome, obesity class one. Check blood work consisting of CBC, CMP, lipid, thyroid, PSA and urine drug screen. Continue on current Rx follow-up in six months. Additional Orders - Directives - Recommendations 1. Recheck blood pressure in two weeks no appointment necessary 2. calling in a prescription to [facility] in [place] four losartan Follow Up: 6 Months Approximate Date: 12/13/2024 Portions of record are template driven. When necessary additional context will be provided. Additionally some portions have been created with voice recognition software. Occasional wrong-word or [id number] substitutions may have occurred due to the inherent limitations of voice recognition software. Read the chart carefully and recognize, using context, where substitutions may have occurred. Created: Kira Jarquin M.D. 06.16.2024 03:02 PM [email or web address] Not available 06/16/2024 16:02:05 08/10/2024 [id number] Follow-up for essential hypertension, palpitations, erythrocytosis chronic pain syndrome. Will check erythropoietin level. Obtain ultrasound or CT scan of the abdomen and pelvis to rule out possible any type of splenic enlargement and/or renal cell tumor that might cause elevation of the erythropoietin etc.. Additional Orders - Directives - Recommendations 1. CT scan of the abdomen and pelvis with contrast for erythrocytosis rule out possible renal cell cancer or hepatosplenomegaly. Follow Up: 4 Weeks Approximate Date: 09/07/2024 Portions of record are template driven. When necessary additional context will be provided. Additionally some portions have been created with voice recognition software. Occasional wrong-word or [id number] substitutions may have occurred due to the inherent limitations of voice recognition software. Read the chart carefully and recognize, using context, where substitutions may have occurred. Created: Kira Jarquin M.D. 08.10.2024 02:00 PM [email or web address] Not available 08/10/2024 15:01:02 Reason for Referral None Reported. Results Created Date Observation Date Name Description Value Unit Range Abnormal Flag Note LastModifiedBy Organization Detail LastModifiedTime 09/12/19 24 09/12/2023 COLOG UARD cologuard result Cancel led - Order d not applic able Not Available [facility] (Cologuard Orders Only) [address], [place], [address], 09/12/2023 08:36:42 10/29/1910/28/2021 PSA, TOTAL PSA, total 2.15 NG/mL 0.00-4 .00 Not Available [facility] (Lab) [address] [place], [address], 10/28/2021 14:45:09 10/29/1910/28/2021 TSH thyroid-stim ulating hormone 0.865 uIU/m L 0.465- 4.680 Not Available [facility] (Lab) [address] [place], [address], 10/28/2021 14:45:07 10/29/19 22 10/28/2021 LIPID PANEL cholesterol 196 mg/dL 140-19 9 NIH ALESSANDRO NSUS RECOM MENDA TION FOR ROGER STERO L: ADULT CHILD LOW RISK: <200 <170 BORDE RLINE : <200- 239 ----- HIGH RISK: >240 >200 Not Available [facility] (Lab) [address] [place], [address], 10/28/2021 14:23:41 10/29/19 22 10/28/2021 LIPID PANEL triglyceride s 112 mg/dL 0-150 NIH ALESSANDRO NSUS REPOR T RECOM MENDA TION FOR TRIGL YCERI KELSY: ADULT CHILD LOW RISK: <150 ----- BODER LINE: 150-1 99 ----- HIGH RISK: >200 ----- Not Available [facility] (Lab) [address] [place], [address], 10/28/2021 14:23:41 10/29/19 22 10/28/2021 LIPID PANEL HDL cholesterol 41 mg/dL 40- Not Available [facility] (Lab) [address] [place], [address], 10/28/2021 14:23:41 10/29/19 22 10/28/2021 LIPID PANEL LDL cholesterol, calculated 133 mg/dL 0-130 high NIH ALESSANDRO NSUS REPOR T RECOM MENDA TIONS FOR LDL: ADULT CHILD LOW RISK <130 <110 (OPTI MAL LDL) <100 ----- JIM RLINE : 130-1 59 ----- HIGH RISK: >160 >130 A TRIGL YCERI DE RESUL T >400 INVAL IDATE S THE CALCU LATIO N FOR LDL FRACT IONAT ION - THE LDL RESUL T WILL NOT BE REPOR CHAPARRO. Not Available [facility] (Lab) [address] [place], [address], 10/28/2021 14:23:41 10/29/19 22 10/28/2021 COMPR EHENS JORGE LUIS METAB OLIC PANEL sodium 139 mmol/ L 137-14 5 Not Available [facility] (Lab) [address] [place], [address], 10/28/2021 14:23:39 10/29/19 22 10/28/2021 COMPR EHENS JORGE LUIS METAB OLIC PANEL potassium 5.5 mmol/ L 3.5-5. 1 high Not Available [facility] (Lab) [address] [place], [address], 10/28/2021 14:23:39 10/29/19 22 10/28/2021 COMPR EHENS JORGE LUIS METAB OLIC PANEL chloride 106 mmol/ L 98-107 Not Available [facility] (Lab) [address] [place], [address], 10/28/2021 14:23:39 10/29/19 22 10/28/2021 COMPR EHENS JORGE LUIS METAB OLIC PANEL carbon dioxide 25 mmol/ L 22-30 Not Available [facility] (Lab) [address] [place], [address], 10/28/2021 14:23:39 10/29/19 22 10/28/2021 COMPR EHENS JORGE LUIS METAB OLIC PANEL anion gap 13.5 mmol/ L 14-22 low Not Available [facility] (Lab) [address] [place], [address], 10/28/2021 14:23:39 10/29/19 22 10/28/2021 COMPR EHENS JORGE LUIS METAB OLIC PANEL glucose 96 mg/dL 70-99 Not Available [facility] (Lab) [address] [place], [address], 10/28/2021 14:23:39 10/29/19 22 10/28/2021 COMPR EHENS JORGE LUIS METAB OLIC PANEL BUN 10 mg/dL 8-19 Not Available [facility] (Lab) [address] [place], [address], 10/28/2021 14:23:39 10/29/19 22 10/28/2021 COMPR EHENS JORGE LUIS METAB OLIC PANEL creatinine 1.06 mg/dL 0.66-1 .25 Not Available [facility] (Lab) [address] [place], [address], 10/28/2021 14:23:39 10/29/19 22 10/28/2021 COMPR EHENS JORGE LUIS METAB OLIC PANEL GFR >60 Refer ence Range : [place] ge GFR Healt hy Adult : >60 mL/mi n/1.7 3 m2 Chron ic Kidne y Disea se: 15-60 mL/mi n/1.7 3 m2 Kidne y Failu re: <15/m L/min /1.73 m2 www.n iddk. nih.g ov The MDRD study equat ion has not been valid ated in child ladarius <18 years of age; pregn ant women ; the elder ly >85 years of age; or in some racia l or ethni c subgr oups, such as Hispa nics. Outsi de the valid ated justice eters , estim ated GFR is less accur ate, requi ring clini derrick judgm ent on a case- by-ca se basis . Clini derrick inter preta tion for other races and ages must be made by the clini gerry. The MDRD study equat ion has not been valid ated for the evalu ation of serum creat inine relat ed to nutri laney l statu s or medic ation usage . For perso ns <18 years of age, a pedia tric GFR calcu lator is avail able on the [facility] websi te: https ://davon w.kid isidro.o rg/pr ofess ional s/kdo qi/gf r_cal culat or Not Available [facility] (Lab) [address] [place], [address], 10/28/2021 14:23:39 10/29/19 22 10/28/2021 COMPR EHENS JORGE LUIS METAB OLIC PANEL alkaline phosphatase 73 U/L 38-126 Not Available [facility] (Lab) [address] [place], [address], 10/28/2021 14:23:39 10/29/19 22 10/28/2021 COMPR EHENS JORGE LUIS METAB OLIC PANEL alanine aminotransfe rase 54 U/L 0-50 high Not Available [facility] (Lab) [address] [place], [address], 10/28/2021 14:23:39 10/29/19 22 10/28/2021 COMPR EHENS JORGE LUIS METAB OLIC PANEL aspartate aminotransfe rase 60 U/L 15-46 high Not Available [facility] (Lab) [address] [place], [address], 10/28/2021 14:23:39 10/29/19 22 10/28/2021 COMPR EHENS JORGE LUIS METAB OLIC PANEL bilirubin, total 0.40 mg/dL 0.20-1 .30 Not Available [facility] (Lab) [address] [place], [address], 10/28/2021 14:23:39 10/29/19 22 10/28/2021 COMPR EHENS JORGE LUIS METAB OLIC PANEL calcium 9.2 mg/dL 8.4-10 .2 Not Available [facility] (Lab) [address] [place], [address], 10/28/2021 14:23:39 10/29/19 22 10/28/2021 COMPR EHENS JORGE LUIS METAB OLIC PANEL total protein 7.7 g/dL 6.3-8. 2 Not Available [facility] (Lab) [address] [place], [address], 10/28/2021 14:23:39 10/29/19 22 10/28/2021 COMPR EHENS JORGE LUIS METAB OLIC PANEL albumin 4.7 g/dL 3.4-5. 0 Not Available [facility] (Lab) [address] [place], [address], 10/28/2021 14:23:39 10/29/19 22 10/28/2021 COMPR EHENS JORGE LUIS METAB OLIC PANEL globulin 3.0 g/dL 2.6-4. 2 Not Available [facility] (Lab) [address] [place], [address], 10/28/2021 14:23:39 10/29/19 22 10/28/2021 COMPR EHENS JORGE LUIS METAB OLIC PANEL A/G ratio 1.6 ratio 1.0-2. 0 Not Available [facility] (Lab) [address] [place], [address], 10/28/2021 14:23:39 10/29/19 22 10/28/2021 URINE DRUG SCREE N amphetamines positi ve abnormal Amphe tamin e cut off 500 ng/mL Not Available [facility] (Lab) [address] [place], [address], 10/28/2021 13:57:01 10/29/19 22 10/28/2021 URINE DRUG SCREE N barbiturates negati ve Janiya turat e cut off 200 ng/mL Not Available [facility] (Lab) [address] [place], [address], 10/28/2021 13:57:01 10/29/19 22 10/28/2021 URINE DRUG SCREE N benzodiazepi marcelina positi ve abnormal Benzo diaze pine cut off 200 ng/mL Not Available [facility] (Lab) [address] [place], [address], 10/28/2021 13:57:01 10/29/19 22 10/28/2021 URINE DRUG SCREE N cocaine negati ve Cocai ne metab olite cut off 150 ng/mL Not Available [facility] (Lab) [address] [place], [address], 10/28/2021 13:57:01 10/29/19 22 10/28/2021 URINE DRUG SCREE N MDMA negati ve MDMA cut off 500 ng/mL Not Available [facility] (Lab) [address] [place], [address], 10/28/2021 13:57:01 10/29/19 22 10/28/2021 URINE DRUG SCREE N methadone negati ve Metha done cutof f 300 ng/mL . Not Available [facility] (Lab) [address] [place], [address], 10/28/2021 13:57:01 10/29/19 22 10/28/2021 URINE DRUG SCREE N opiates positi ve abnormal Opiat e cut off 300 ng/mL Not Available [facility] (Lab) [address] [place], [address], 10/28/2021 13:57:01 10/29/19 22 10/28/2021 URINE DRUG SCREE N oxycodone negati ve Oxyco done cut off 100 ng/mL Not Available [facility] (Lab) [address] [place], [address], 10/28/2021 13:57:01 10/29/19 22 10/28/2021 URINE DRUG SCREE N phencyclidin e negati ve PCP cut off 25 ng/mL Not Available [facility] (Lab) [address] [place], [address], 10/28/2021 13:57:01 10/29/19 22 10/28/2021 URINE DRUG SCREE N marijuana positi ve abnormal Marij uana cut off 50 ng/mL ANY POSIT JORGE LUIS RESUL TS REPOR CHAPARRO ARE UNCON FIRME D, AND SUCH, SHOUL D BE USED FOR MEDIC AL TREAT MENT PURPO SES ONLY. Not Available [facility] (Lab) [address] [place], [address], 10/28/2021 13:57:01 10/29/19 22 10/28/2021 CBC/C OMPLE TE BLD COUNT W/DIF F white blood cells 10.9 x10'3 /uL 4.2-10 .8 high Not Available [facility] (Lab) [address] [place], [address], 10/28/2021 13:49:43 10/29/19 22 10/28/2021 CBC/C OMPLE TE BLD COUNT W/DIF F red blood cells 5.39 x10'6 /uL 4.10-5 .80 Not Available [facility] (Lab) [address] [place], [address], 10/28/2021 13:49:43 10/29/19 22 10/28/2021 CBC/C OMPLE TE BLD COUNT W/DIF F hemoglobin 16.6 g/dL 13.2-1 7.0 Not Available [facility] (Lab) [address] [place], [address], 10/28/2021 13:49:43 10/29/19 22 10/28/2021 CBC/C OMPLE TE BLD COUNT W/DIF F hematocrit 51.4 % 39.3-5 0.0 high Not Available [facility] (Lab) [address] [place], [address], 10/28/2021 13:49:43 10/29/19 22 10/28/2021 CBC/C OMPLE TE BLD COUNT W/DIF F mean red cell volume 95.4 fL 80.0-9 7.0 Not Available [facility] (Lab) [address] [place], [address], 10/28/2021 13:49:43 10/29/19 22 10/28/2021 CBC/C OMPLE TE BLD COUNT W/DIF F mean red cell hemoglobin 30.8 pg 27.0-3 3.0 Not Available [facility] (Lab) [address] [place], [address], 10/28/2021 13:49:43 10/29/19 22 10/28/2021 CBC/C OMPLE TE BLD COUNT W/DIF F mean RBC HGB concentratio n 32.3 g/dL 31.0-3 6.0 Not Available [facility] (Lab) [address] [place], [address], 10/28/2021 13:49:43 10/29/19 22 10/28/2021 CBC/C OMPLE TE BLD COUNT W/DIF F red cell distribution width 14.0 % 11.8-1 5.5 Not Available [facility] (Lab) [address] [place], [address], 10/28/2021 13:49:43 10/29/19 22 10/28/2021 CBC/C OMPLE TE BLD COUNT W/DIF F platelets 311 x10'3 /uL 150-40 0 Not Available [facility] (Lab) [address] [place], [address], 10/28/2021 13:49:43 10/29/19 22 10/28/2021 CBC/C OMPLE TE BLD COUNT W/DIF F mean platelet volume 10.2 fL 9.0-12 .4 Not Available [facility] (Lab) [address] [place], [address], 10/28/2021 13:49:43 10/29/19 22 10/28/2021 CBC/C OMPLE TE BLD COUNT W/DIF F neutrophils 75.0 % 39.0-7 2.0 high Not Available [facility] (Lab) [address] [place], [address], 10/28/2021 13:49:43 10/29/19 22 10/28/2021 CBC/C OMPLE TE BLD COUNT W/DIF F lymphocytes 16.1 % 16.0-4 7.0 Not Available [facility] (Lab) [address] [place], [address], 10/28/2021 13:49:43 10/29/19 22 10/28/2021 CBC/C OMPLE TE BLD COUNT W/DIF F monocytes 6.2 % 5.0-12 .0 Not Available [facility] (Lab) [address] [place], [address], 10/28/2021 13:49:43 10/29/19 22 10/28/2021 CBC/C OMPLE TE BLD COUNT W/DIF F eosinophils 1.7 % 1.0-7. 0 Not Available [facility] (Lab) [address] [place], [address], 10/28/2021 13:49:43 10/29/19 22 10/28/2021 CBC/C OMPLE TE BLD COUNT W/DIF F basophils 0.6 % 0.0-2. 0 Not Available [facility] (Lab) [address] [place], [address], 10/28/2021 13:49:43 10/29/19 22 10/28/2021 CBC/C OMPLE TE BLD COUNT W/DIF F immature granulocytes 0.4 % 0.00-0 .50 Not Available [facility] (Lab) [address] [place], [address], 10/28/2021 13:49:43 10/29/19 22 10/28/2021 CBC/C OMPLE TE BLD COUNT W/DIF F neutrophils, absolute count 8.15 x10'3 /uL 1.5-8. 0 high Not Available [facility] (Lab) [address] [place], [address], 10/28/2021 13:49:43 10/29/19 22 10/28/2021 CBC/C OMPLE TE BLD COUNT W/DIF F lymphocytes, absolute count 1.75 x10'3 /uL 1.07-3 .43 Not Available [facility] (Lab) [address] [place], [address], 10/28/2021 13:49:43 10/29/19 22 10/28/2021 CBC/C OMPLE TE BLD COUNT W/DIF F monocytes, absolute count 0.67 x10'3 /uL 0.29-0 .99 Not Available [facility] (Lab) [address] [place], [address], 10/28/2021 13:49:43 10/29/19 22 10/28/2021 CBC/C OMPLE TE BLD COUNT W/DIF F eosinophils, absolute count 0.18 x10'3 /uL 0.02-0 .53 Not Available [facility] (Lab) [address] [place], [address], 10/28/2021 13:49:43 10/29/19 22 10/28/2021 CBC/C OMPLE TE BLD COUNT W/DIF F basophils, absolute count 0.07 x10'3 /uL 0.01-0 .08 Not Available [facility] (Lab) [address] [place], [address], 10/28/2021 13:49:43 10/29/19 22 10/28/2021 CBC/C OMPLE TE BLD COUNT W/DIF F immature granulocytes ,absolute 0.04 x10'3 /uL 0.00-0 .05 Not Available [facility] (Lab) [address] [place], [address], 10/28/2021 13:49:43 10/29/19 22 10/28/2021 CBC/C OMPLE TE BLD COUNT W/DIF F nucleated red blood cells 0.0 % -0 Not Available [facility] (Lab) [address] [place], [address], 10/28/2021 13:49:43 10/29/19 22 10/28/2021 CBC/C OMPLE TE BLD COUNT W/DIF F NRBC# 0.00 x10'3 /uL Not Available [facility] (Lab) [address] [place], [address], 10/28/2021 13:49:43 09/13/19 23 09/13/2022 LIPID PANEL , STAND MAX cholesterol, total 161 mg/dL <200 normal Not Available [address] [facility] [address] [place], [address], 09/13/2022 20:19:12 09/13/19 23 09/13/2022 LIPID PANEL , STAND MAX HDL cholesterol 30 mg/dL > or = 40 low Not Available [address] [address] [place], [address], 09/13/2022 20:19:12 09/13/1909/13/2022 LIPID PANEL , STAND MAX triglyceride s 70 mg/dL <150 normal Not Available [address] [address] [place], [address], 09/13/2022 20:19:12 09/13/1909/13/2022 LIPID PANEL , STAND MAX LDL-choleste rol 115 mg/dL _(derrick c) high Refer ence range : <100 Caio able range <100 mg/dL for prima ry preve ntion ; <70 mg/dL for patie nts with CHD or diabe tic patie nts with > or = 2 CHD risk facto rs. LDL-C is now calcu lated using the Naina gayle-[facility] kins ewa subramanian n, which is a valid ated novel inao d cindyi roni john r accur acy than the Fried doris equat ion in the estim ation of LDL-C . Naina gayle SS et al. ERICA. 2013; 310(1 9): 2061- 2068 (http ://ed ucati on.Qu [employer]. com/f aq/FA Q164) Not Available [address] [address] [place], [address], 09/13/2022 20:19:12 09/13/1909/13/2022 LIPID PANEL , STAND MAX chol/HDLC ratio 5.4 (calc ) <5.0 high Not Available [address] [place] [address] [place], [address], 09/13/2022 20:19:12 09/13/1909/13/2022 LIPID PANEL , STAND MAX non HDL cholesterol 131 mg/dL _(derrick c) <130 high For patie nts with diabe mode plus 1 major ASCVD risk facto r, treat ing to a non-H DL-C goal of <100 mg/dL (LDL- C of <70 mg/dL ) is consi dered a thera peuti c optio n. Not Available [address], [address], 09/13/2022 20:19:12 09/13/19 23 09/13/2022 TSH+F REE T4 TSH 2.17 mIU/L 0.40-4 .50 normal Not Available [address], [address], 09/13/2022 20:19:13 09/13/1909/13/2022 TSH+F REE T4 T4, free 1.2 NG/dL 0.8-1. 8 normal Not Available [address], [address], 09/13/2022 20:19:13 09/13/19 23 09/13/2022 COMPR EHENS JORGE LUIS METAB OLIC PANEL glucose 70 mg/dL 65-99 normal Fasti ng refer ence inter lorne Not Available [address], [address], 09/13/2022 20:19:13 09/13/19 23 09/13/2022 COMPR EHENS JORGE LUIS METAB OLIC PANEL urea nitrogen (BUN) 8 mg/dL 7-25 normal Not Available [address], [address], 09/13/2022 20:19:13 09/13/19 23 09/13/2022 COMPR EHENS JORGE LUIS METAB OLIC PANEL creatinine 1.32 mg/dL 0.60-1 .29 high Not Available [address], [address], 09/13/2022 20:19:13 09/13/19 23 09/13/2022 COMPR EHENS JORGE LUIS METAB OLIC PANEL eGFR 67 mL/mi n/1.7 3m2 > or = 60 normal The eGFR is based on the CKD-E PI 2020 equat ion. To calcu late the new eGFR from a previ ous Creat inine or Cysta tin C resul t, go to https ://davon valles/bertrand duncan s/ kdoqi /gfr% 5Fcal culat or Not Available [address], [address], 09/13/2022 20:19:13 09/13/19 23 09/13/2022 COMPR EHENS JORGE LUIS METAB OLIC PANEL BUN/creatini ne ratio 6 (calc ) 6-22 normal Not Available [address], [address], 09/13/2022 20:19:13 09/13/19 23 09/13/2022 COMPR EHENS JORGE LUIS METAB OLIC PANEL sodium 136 mmol/ L 135-14 6 normal Not Available [address], [address], 09/13/2022 20:19:13 09/13/19 23 09/13/2022 COMPR EHENS JORGE LUIS METAB OLIC PANEL potassium 4.7 mmol/ L 3.5-5. 3 normal Not Available [address], [address], 09/13/2022 20:19:13 09/13/19 23 09/13/2022 COMPR EHENS JORGE LUIS METAB OLIC PANEL chloride 99 mmol/ L 98-110 normal Not Available [address], [address], 09/13/2022 20:19:13 09/13/19 23 09/13/2022 COMPR EHENS JORGE LUIS METAB OLIC PANEL carbon dioxide 30 mmol/ L 20-32 normal Not Available [address] [address] [place], [address], 09/13/2022 20:19:13 09/13/19 23 09/13/2022 COMPR EHENS JORGE LUIS METAB OLIC PANEL calcium 9.5 mg/dL 8.6-10 .3 normal Not Available [address], [address], 09/13/2022 20:19:13 09/13/19 23 09/13/2022 COMPR EHENS JORGE LUIS METAB OLIC PANEL protein, total 7.4 g/dL 6.1-8. 1 normal Not Available [address], [address], 09/13/2022 20:19:13 09/13/19 23 09/13/2022 COMPR EHENS JORGE LUIS METAB OLIC PANEL albumin 4.3 g/dL 3.6-5. 1 normal Not Available [address], [address], 09/13/2022 20:19:13 09/13/19 23 09/13/2022 COMPR EHENS JORGE LUIS METAB OLIC PANEL globulin 3.1 g/dL_ (calc ) 1.9-3. 7 normal Not Available [address], [address], 09/13/2022 20:19:13 09/13/19 23 09/13/2022 COMPR EHENS JORGE LUIS METAB OLIC PANEL albumin/glob ulin ratio 1.4 (calc ) 1.0-2. 5 normal Not Available [address], [address], 09/13/2022 20:19:13 09/13/19 23 09/13/2022 COMPR EHENS JORGE LUIS METAB OLIC PANEL bilirubin, total 0.4 mg/dL 0.2-1. 2 normal Not Available [address], [address], 09/13/2022 20:19:13 09/13/19 23 09/13/2022 COMPR EHENS JORGE LUIS METAB OLIC PANEL alkaline phosphatase 55 U/L 36-130 normal Not Available [facility] [address] [address] [place], [address], 09/13/2022 20:19:13 09/13/19 23 09/13/2022 COMPR EHENS JORGE LUIS METAB OLIC PANEL AST 28 U/L 10-40 normal Not Available [address], [address], 09/13/2022 20:19:13 09/13/19 23 09/13/2022 COMPR EHENS JORGE LUIS METAB OLIC PANEL ALT 40 U/L 9-46 normal Not Available [address], [address], 09/13/2022 20:19:13 09/13/19 23 09/13/2022 CBC (INCL UDES DIFF/ PLT) white blood cell count 15.4 thous and/u L 3.8-10 .8 high Not Available [facility] [address], [address], 09/13/2022 20:19:14 09/13/19 23 09/13/2022 CBC (INCL UDES DIFF/ PLT) red blood cell count 5.86 barney on/uL 4.20-5 .80 high Not Available [facility] [address], [address], 09/13/2022 20:19:14 09/13/19 23 09/13/2022 CBC (INCL UDES DIFF/ PLT) hemoglobin 18.1 g/dL 13.2-1 7.1 high Not Available [facility] [address], [address], 09/13/2022 20:19:14 09/13/1909/13/2022 CBC (INCL UDES DIFF/ PLT) hematocrit 54.3 % 38.5-5 0.0 high Not Available [facility] [address], [address], 09/13/2022 20:19:14 09/13/19 23 09/13/2022 CBC (INCL UDES DIFF/ PLT) MCV 92.7 fL 80.0-1 00.0 normal Not Available [address], [address], 09/13/2022 20:19:14 09/13/19 23 09/13/2022 CBC (INCL UDES DIFF/ PLT) MCH 30.9 pg 27.0-3 3.0 normal Not Available [address], [address], 09/13/2022 20:19:14 09/13/1909/13/2022 CBC (INCL UDES DIFF/ PLT) MCHC 33.3 g/dL 32.0-3 6.0 normal Not Available [address], [address], 09/13/2022 20:19:14 09/13/19 23 09/13/2022 CBC (INCL UDES DIFF/ PLT) RDW 13.5 % 11.0-1 5.0 normal Not Available [address], [address], 09/13/2022 20:19:14 09/13/19 23 09/13/2022 CBC (INCL UDES DIFF/ PLT) platelet count 412 thous and/u L 140-40 0 high Not Available [address], [address], 09/13/2022 20:19:14 09/13/19 23 09/13/2022 CBC (INCL UDES DIFF/ PLT) MPV 10.2 fL 7.5-12 .5 normal Not Available [address], [address], 09/13/2022 20:19:14 09/13/19 23 09/13/2022 CBC (INCL UDES DIFF/ PLT) absolute neutrophils 497[address] cells /uL 1500-7 800 high Not Available [address], [address], 09/13/2022 20:19:14 09/13/19 23 09/13/2022 CBC (INCL UDES DIFF/ PLT) absolute lymphocytes 2741 cells /uL 850-39 00 normal Not Available [address], [address], 09/13/2022 20:19:14 09/13/19 23 09/13/2022 CBC (INCL UDES DIFF/ PLT) absolute monocytes 970 cells /uL 200-95 0 high Not Available [address], [address], 09/13/2022 20:19:14 09/13/19 23 09/13/2022 CBC (INCL UDES DIFF/ PLT) absolute eosinophils 154 cells /uL 15-500 normal Not Available [address], [address], 09/13/2022 20:19:14 09/13/19 23 09/13/2022 CBC (INCL UDES DIFF/ PLT) absolute basophils 154 cells /uL 0-200 normal Not Available [address], [address], 09/13/2022 20:19:14 09/13/19 23 09/13/2022 CBC (INCL UDES DIFF/ PLT) neutrophils 73.9 % normal Not Available [address], [address], 09/13/2022 20:19:14 09/13/19 23 09/13/2022 CBC (INCL UDES DIFF/ PLT) lymphocytes 17.8 % normal Not Available [address], [address], 09/13/2022 20:19:14 09/13/19 23 09/13/2022 CBC (INCL UDES DIFF/ PLT) monocytes 6.3 % normal Not Available [facility] [address] [address] [place], [address], 09/13/2022 20:19:14 09/13/19 23 09/13/2022 CBC (INCL UDES DIFF/ PLT) eosinophils 1.0 % normal Not Available [facility] [address] [address] [place], [address], 09/13/2022 20:19:14 09/13/19 23 09/13/2022 CBC (INCL UDES DIFF/ PLT) basophils 1.0 % normal Not Available [facility] [address] [address] [place], [address], 09/13/2022 20:19:14 09/13/1909/13/2022 PSA, TOTAL PSA, total 2.38 NG/mL < or = 4.00 normal The total PSA value from this assay syste m is stand ardiz ed again st the WHO stand max. The test resul t will be appro ximat jelly 20% lower when nitza red to the equim olar- stand ardiz ed total PSA (Patel man Coult er). Nitza rison of seria l PSA resul ts shoul d be inter prete d with this fact in mind. This test was perfo rmed using the Sieme ns chemi lumin escen t metho d. Value s obtai arthur from diffe rent assay metho ds canno t be used inter ross eably . PSA level s, regar dless of value , shoul d not be inter prete d as absol cowlitz evide nce of the prese nce or absen ce of disea se. Not Available [facility] [address] [address] [place], [address], 09/13/2022 20:19:15 09/13/1909/13/2022 DRUG MONIT OR, BASE PANEL , SCREE N, URINE benzodiazepi marcelina POSITI VE NG/mL <100 abnormal See Note A See Note A Not Available [facility] [address] [address] [place], [address], 09/13/2022 20:19:15 09/13/19 23 09/13/2022 DRUG MONIT OR, BASE PANEL , SCREE N, URINE cocaine metabolite NEGATI VE NG/mL <150 See Note A See Note A Not Available [address] [address] [address], [place], [address], 09/13/2022 20:19:15 09/13/19 23 09/13/2022 DRUG MONIT OR, BASE PANEL , SCREE N, URINE opiates POSITI VE NG/mL <100 abnormal See Note A See Note A Not Available [address] [address] [address], [place], [address], 09/13/2022 20:19:15 09/13/19 23 09/13/2022 DRUG MONIT OR, BASE PANEL , SCREE N, URINE oxycodone NEGATI VE NG/mL <100 See Note A See Note A Not Available [address] [address] [address], [place], [address], 09/13/2022 20:19:15 09/13/19 23 09/13/2022 DRUG MONIT OR, BASE PANEL , SCREE N, URINE creatinine 140.9 mg/dL > or = 20.0 Not Available [address] [address] [address], [place], [address], 09/13/2022 20:19:15 09/13/19 23 09/13/2022 DRUG MONIT OR, BASE PANEL , SCREE N, URINE pH 6.1 4.5-9. 0 Not Available [address] [address] [address], [place], [address], 09/13/2022 20:19:15 09/13/19 23 09/13/2022 DRUG MONIT OR, BASE PANEL , SCREE N, URINE oxidant NEGATI VE mcg/m L <200 Not Available [address] [address] [address], [place], [address], 09/13/2022 20:19:15 09/13/1909/13/2022 DRUG MONIT ORING TEMPL ATE notes and comments This drug testi ng is for medic al treat ment only. Rita sis was perfo rmed as non-f orens ic testi ng and these resul ts shoul d be used only by healt hcare provi ders to rende r diagn osis or treat ment, or to monit or progr ess of medic al condi tions . Note A: The resul ts are presu mptiv e; based only on scree noris metho ds, and they have not been confi rmed by a defin itive metho d. Healt hcare Provi ders needi ng Inter preta tion tremaine woody ortega e conta ct us at 1.877 .40.R XTOX (1.87 7.407 .9869 ) M-F, 8am to 10pm EST Not Available [address] [address] [place], [address], 09/13/2022 20:19:17 11/11/1911/21/2022 JAK2 V617F MUTAT ION RITA SIS clinical indication NG Not Available [address] [address] [place], [address], 11/21/2022 18:24:39 11/11/19 23 11/21/2022 JAK2 V617F MUTAT ION RITA SIS specimen source VENOUS Not Available [address] [address] [place], [address], 11/21/2022 18:24:39 11/11/19 23 11/21/2022 JAK2 V617F MUTAT ION RITA SIS block/specim en id NG Not Available [facility] [address] [address] [place], [address], 11/21/2022 18:24:39 11/11/19 23 11/21/2022 JAK2 V617F MUTAT ION RITA SIS jak2 v617f mutation NOT DETECT ED not detect ed Not Available [facility] [address] [address] [place], [address], 11/21/2022 18:24:39 11/11/19 23 11/21/2022 JAK2 V617F MUTAT ION RITA SIS interpretati on SEE NOTE A JAK2 V617F mutat ion is not detec chaparro. This data was revie wed and inter prete d by Madison ferro Ma, PhD. HCLD( ABB) Not Available [facility] [address] [address], [place], [address], 11/21/2022 18:24:39 11/11/19 23 11/21/2022 JAK2 V617F MUTAT ION RITA SIS assay details SEE NOTE This PCR-b ased advan sabiha seque ncing assay inter rogat es DNA from leuko cytes for the prese nce of mutat ions in codon 617 of JAK2. The sensi tivit y of mutat ion detec tion is 5%. Alter ation s outsi de of the teste d areas of this gene will not be detec chaparro. Synon ymous or known non-s ynony mous polym orphi c ross es (SNPs ) are not repor chaparro. JAK2 V617F mutat ion is assoc iated with myelo proli ferat jorge luis neopl asms (MPNs ), inclu ding polyc ythem ia vera (PV), essen tial throm bocyt hemia (ET) and prima ry myelo fibro sis (PMF) , and a small subse t of other myelo id neopl asms. Incre asing allel e burde n of JAK2 V617F in MPNs has been shown in a numbe r of studi es to be assoc iated with incre ased sympt oms inclu ding pruri tis, splen omega ly, and leuko cytos is. Resul ts of this assay shoul d be corre lated with morph ology and other labor atory testi ng for final diagn osis and class ifica tion. If this test is negat jorge luis, addit ional testi ng that may be usefu l for marika p of MPNs, depen ding on prese nting hemat ologi c featu res, inclu kelsy BCR-A BL1 rearr angem ent (test code [address] [place] [address] X) or mutat ional rita sis of CALR (ET/P [place], [address] ), JAK2 exon 12 (PV, 10117 ), MPL (ET/P MF, 24495 ) or CSF3R (photoengraving supervisor jayda neutr ophil ic leuke aretha, [address] ). Resid ual mater ial from this sampl e may be used excep t for BCR-A BL1 testi ng; call lab to add. DNA was align ed to GRCh3 7(hg1 9) for rita sis and trans cript ID [id number] was used as refer ence for JAK2 seque nce. For addit ional infor woody smallwood e refer to http: //[facility].Han stDia gnost ics.c om/fa q/FAQ 211 (This link is being provi ded for infor matfallon nal/e ducat ional purpo ses only. ) This test was devel oped and its rita tical perfo rmanc e santana cteri stics have been deter mined by [facility] . It has not been clear ed or appro ryan by FDA. This assay has been valid ated pursu ant to the CLIA regul ation s and is used for clini derrick purpo ses. Not Available [facility] [address] [place], [address], 11/21/2022 18:24:39 11/11/19 23 11/21/2022 ERYTH ROPOI ETIN erythropoiet in 12.4 mIU/m L 2.6-18 .5 Not Available [facility] [address] [place], [address], 11/21/2022 18:24:39 04/14/20 23 04/14/2023 URINE DRUG SCREE N amphetamines NEGATI VE Amphe tamin e cut off 500 ng/mL Not Available [facility] (Lab) [address] [place], [address], 04/14/2023 18:34:10 04/14/20 23 04/14/2023 URINE DRUG SCREE N barbiturates NEGATI VE Janiya turat e cut off 200 ng/mL Not Available [facility] (Lab) [address] [place], [address], 04/14/2023 18:34:10 04/14/20 23 04/14/2023 URINE DRUG SCREE N benzodiazepi marcelina POSITI VE abnormal Benzo diaze pine cut off 200 ng/mL Not Available [facility] (Lab) [address] [place], [address], 04/14/2023 18:34:10 04/14/20 23 04/14/2023 URINE DRUG SCREE N cocaine NEGATI VE Cocai ne metab olite cut off 150 ng/mL Not Available [facility] (Lab) [address] [place], [address], 04/14/2023 18:34:10 04/14/20 23 04/14/2023 URINE DRUG SCREE N MDMA NEGATI VE MDMA cut off 500 ng/mL Not Available [facility] (Lab) [address] [place], [address], 04/14/2023 18:34:10 04/14/20 23 04/14/2023 URINE DRUG SCREE N methadone NEGATI VE Metha done cutof f 300 ng/mL . Not Available [facility] (Lab) [address] [place], [address], 04/14/2023 18:34:10 04/14/20 23 04/14/2023 URINE DRUG SCREE N opiates POSITI VE abnormal Opiat e cut off 300 ng/mL Not Available [facility] (Lab) [address] [place], [address], 04/14/2023 18:34:10 04/14/20 23 04/14/2023 URINE DRUG SCREE N oxycodone NEGATI VE Oxyco done cut off 100 ng/mL Not Available [facility] (Lab) [address] [place], [address], 04/14/2023 18:34:10 04/14/20 23 04/14/2023 URINE DRUG SCREE N phencyclidin e NEGATI VE PCP cut off 25 ng/mL Not Available [facility] (Lab) [address] [place], [address], 04/14/2023 18:34:10 04/14/20 23 04/14/2023 URINE DRUG SCREE N marijuana POSITI VE abnormal Marij uana cut off 50 ng/mL ANY POSIT JORGE LUIS RESUL TS REPOR CHAPARRO ARE UNCON FIRME D, AND SUCH, SHOUL D BE USED FOR MEDIC AL TREAT MENT PURPO SES ONLY. Not Available [facility] (Lab) [address] [place], [address], 04/14/2023 18:34:10 04/14/20 23 04/14/2023 PSA, TOTAL PSA, total 2.49 NG/mL 0.00-4 .00 Not Available [facility] ([facility]) [address] [place], [address], 04/14/2023 18:50:47 06/16/19 25 06/17/2024 LIPID PANEL , STAND MAX cholesterol, total 165 mg/dL <200 normal Not Available [facility] [address] [address] [place], [address], 06/17/2024 23:11:35 06/16/19 25 06/17/2024 LIPID PANEL , STAND MAX HDL cholesterol 34 mg/dL > or = 40 low Not Available [address] [address] [address] [place], [address], 06/17/2024 23:11:35 06/16/19 25 06/17/2024 LIPID PANEL , STAND MAX triglyceride s 64 mg/dL <150 normal Not Available [address] [address] [address] [place], [address], 06/17/2024 23:11:35 06/16/19 25 06/17/2024 LIPID PANEL , STAND MAX LDL-choleste rol 115 mg/dL _(derrick c) high Refer ence range : <100 Caio able range <100 mg/dL for prima ry preve ntion ; <70 mg/dL for patie nts with CHD or diabe tic patie nts with > or = 2 CHD risk facto rs. LDL-C is now calcu lated using the Naina n-Hop kins calcu marilynn n, which is a valid ated novel metho d provi ding john r accur acy than the Fried doris equat ion in the estim ation of LDL-C . Naina n SS et al. ERICA. 2013; 310(1 9): 2061- 2068 (http ://ed ucati on.Qu jonnyNoxilizer. Incentivyze/f aq/FA Q164) Not Available [address] [address] [place], [address], 06/17/2024 23:11:35 06/16/19 25 06/17/2024 LIPID PANEL , STAND MAX chol/HDLC ratio 4.9 (calc ) <5.0 normal Not Available [address] [address] [place], [address], 06/17/2024 23:11:35 06/16/19 25 06/17/2024 LIPID PANEL , STAND MAX non HDL cholesterol 131 mg/dL _(derrick c) <130 high For patie nts with diabe mode plus 1 major ASCVD risk facto r, treat ing to a non-H DL-C goal of <100 mg/dL (LDL- C of <70 mg/dL ) is consi kalid a thera pekinjal c optio n. Not Available [address] [address] [place], [address], 06/17/2024 23:11:35 06/16/19 25 06/17/2024 COMPR EHENS JORGE LUIS METAB OLIC PANEL glucose 82 mg/dL 65-99 normal Fasti ng refer ence inter lorne Not Available [address], [address], 06/17/2024 23:11:36 06/16/19 25 06/17/2024 COMPR EHENS JORGE LUIS METAB OLIC PANEL urea nitrogen (BUN) 17 mg/dL 7-25 normal Not Available [address], [address], 06/17/2024 23:11:36 06/16/19 25 06/17/2024 COMPR EHENS JORGE LUIS METAB OLIC PANEL creatinine 1.13 mg/dL 0.60-1 .29 normal Not Available [address], [address], 06/17/2024 23:11:36 06/16/19 25 06/17/2024 COMPR EHENS JORGE LUIS METAB OLIC PANEL eGFR 80 mL/mi n/1.7 3m2 > or = 60 normal Not Available [address], [address], 06/17/2024 23:11:36 06/16/19 25 06/17/2024 COMPR EHENS JORGE LUIS METAB OLIC PANEL BUN/creatini ne ratio SEE NOTE: (calc ) 6-22 Not Repor chaparro: BUN and Creat inine are withi n refer ence range . Not Available [address], [address], 06/17/2024 23:11:36 06/16/19 25 06/17/2024 COMPR EHENS JORGE LUIS METAB OLIC PANEL sodium 138 mmol/ L 135-14 6 normal Not Available [address], [address], 06/17/2024 23:11:36 06/16/19 25 06/17/2024 COMPR EHENS JORGE LUIS METAB OLIC PANEL potassium 4.7 mmol/ L 3.5-5. 3 normal Not Available [address], [address], 06/17/2024 23:11:36 06/16/19 25 06/17/2024 COMPR EHENS JORGE LUIS METAB OLIC PANEL chloride 101 mmol/ L 98-110 normal Not Available [address], [address], 06/17/2024 23:11:36 06/16/19 25 06/17/2024 COMPR EHENS JORGE LUIS METAB OLIC PANEL carbon dioxide 29 mmol/ L 20-32 normal Not Available [address], [address], 06/17/2024 23:11:36 06/16/19 25 06/17/2024 COMPR EHENS JORGE LUIS METAB OLIC PANEL calcium 9.2 mg/dL 8.6-10 .3 normal Not Available [address], [address], 06/17/2024 23:11:36 06/16/19 25 06/17/2024 COMPR EHENS JORGE LUIS METAB OLIC PANEL protein, total 7.6 g/dL 6.1-8. 1 normal Not Available [address], [address], 06/17/2024 23:11:36 06/16/19 25 06/17/2024 COMPR EHENS JORGE LUIS METAB OLIC PANEL albumin 4.9 g/dL 3.6-5. 1 normal Not Available [address], [address], 06/17/2024 23:11:36 06/16/19 25 06/17/2024 COMPR EHENS JORGE LUIS METAB OLIC PANEL globulin 2.7 g/dL_ (calc ) 1.9-3. 7 normal Not Available [address], [address], 06/17/2024 23:11:36 06/16/19 25 06/17/2024 COMPR EHENS JORGE LUIS METAB OLIC PANEL albumin/glob ulin ratio 1.8 (calc ) 1.0-2. 5 normal Not Available [address], [address], 06/17/2024 23:11:36 06/16/19 25 06/17/2024 COMPR EHENS JORGE LUIS METAB OLIC PANEL bilirubin, total 0.6 mg/dL 0.2-1. 2 normal Not Available [address], [address], 06/17/2024 23:11:36 06/16/19 25 06/17/2024 COMPR EHENS JORGE LUIS METAB OLIC PANEL alkaline phosphatase 71 U/L 36-130 normal Not Available [address], [address], 06/17/2024 23:11:36 06/16/19 25 06/17/2024 COMPR EHENS JORGE LUIS METAB OLIC PANEL AST 20 U/L 10-40 normal Not Available [address], [address], 06/17/2024 23:11:36 06/16/19 25 06/17/2024 COMPR EHENS JORGE LUIS METAB OLIC PANEL ALT 30 U/L 9-46 normal Not Available [address], [address], 06/17/2024 23:11:36 06/16/19 25 06/17/2024 CBC (INCL UDES DIFF/ PLT) white blood cell count 10.6 thous and/u L 3.8-10 .8 normal Not Available [address], [address], 06/17/2024 23:11:37 06/16/19 25 06/17/2024 CBC (INCL UDES DIFF/ PLT) red blood cell count 5.99 barney on/uL 4.20-5 .80 high Not Available [address], [address], 06/17/2024 23:11:37 06/16/19 25 06/17/2024 CBC (INCL UDES DIFF/ PLT) hemoglobin 18.5 g/dL 13.2-1 7.1 high Not Available [address], [address], 06/17/2024 23:11:37 06/16/19 25 06/17/2024 CBC (INCL UDES DIFF/ PLT) hematocrit 55.4 % 38.5-5 0.0 high Not Available [facility] [address], [address], 06/17/2024 23:11:37 06/16/19 25 06/17/2024 CBC (INCL UDES DIFF/ PLT) MCV 92.5 fL 80.0-1 00.0 normal Not Available [address], [address], 06/17/2024 23:11:37 06/16/19 25 06/17/2024 CBC (INCL UDES DIFF/ PLT) MCH 30.9 pg 27.0-3 3.0 normal Not Available [address], [address], 06/17/2024 23:11:37 06/16/19 25 06/17/2024 CBC (INCL UDES DIFF/ PLT) MCHC 33.4 g/dL 32.0-3 6.0 normal For adult s, a sligh t decre ase in the calcu lated MCHC value (in the range of 30 to 32 g/dL) is most likel y not clini dax signi andrey t; amol er, it shoul d be inter prete d with cauti on in corre latio n with other red cell justice eters and the patie nt's clini derrick condi tion. Not Available [facility] [address], [address], 06/17/2024 23:11:37 06/16/19 25 06/17/2024 CBC (INCL UDES DIFF/ PLT) RDW 13.0 % 11.0-1 5.0 normal Not Available [address], [address], 06/17/2024 23:11:37 06/16/19 25 06/17/2024 CBC (INCL UDES DIFF/ PLT) platelet count 265 thous and/u L 140-40 0 normal Not Available [address], [address], 06/17/2024 23:11:37 06/16/19 25 06/17/2024 CBC (INCL UDES DIFF/ PLT) MPV 10.0 fL 7.5-12 .5 normal Not Available [address], [address], 06/17/2024 23:11:37 06/16/19 25 06/17/2024 CBC (INCL UDES DIFF/ PLT) absolute neutrophils 7929 cells /uL 1500-7 800 high Not Available [address], [address], 06/17/2024 23:11:37 06/16/19 25 06/17/2024 CBC (INCL UDES DIFF/ PLT) absolute lymphocytes 1590 cells /uL 850-39 00 normal Not Available [address], [address], 06/17/2024 23:11:37 06/16/19 25 06/17/2024 CBC (INCL UDES DIFF/ PLT) absolute monocytes 816 cells /uL 200-95 0 normal Not Available [address], [address], 06/17/2024 23:11:37 06/16/19 25 06/17/2024 CBC (INCL UDES DIFF/ PLT) absolute eosinophils 191 cells /uL 15-500 normal Not Available [address], [address], 06/17/2024 23:11:37 06/16/19 25 06/17/2024 CBC (INCL UDES DIFF/ PLT) absolute basophils 74 cells /uL 0-200 normal Not Available [address], [address], 06/17/2024 23:11:37 06/16/19 25 06/17/2024 CBC (INCL UDES DIFF/ PLT) neutrophils 74.8 % normal Not Available [address], [address], 06/17/2024 23:11:37 06/16/19 25 06/17/2024 CBC (INCL UDES DIFF/ PLT) lymphocytes 15.0 % normal Not Available [address], [address], 06/17/2024 23:11:37 06/16/19 25 06/17/2024 CBC (INCL UDES DIFF/ PLT) monocytes 7.7 % normal Not Available [address], [address], 06/17/2024 23:11:37 06/16/19 25 06/17/2024 CBC (INCL UDES DIFF/ PLT) eosinophils 1.8 % normal Not Available [address], [address], 06/17/2024 23:11:37 06/16/19 25 06/17/2024 CBC (INCL UDES DIFF/ PLT) basophils 0.7 % normal Not Available [address], [address], 06/17/2024 23:11:37 06/16/19 25 06/17/2024 PSA, TOTAL PSA, total 1.71 NG/mL < or = 4.00 normal The total PSA value from this assay syste m is stand ardiz ed again st the WHO stand max. The test resul t will be appro ximat jelly 20% lower when nitza red to the equim olar- stand ardiz ed total PSA (Patel man Coult er). Nitza rison of seria l PSA resul ts shoul d be inter prete d with this fact in mind. This test was perfo rmed using the Sieme ns chemi lumin escen t metho d. Value s obtai arthur from diffe rent assay metho ds canno t be used inter ross eably . PSA level s, regar dless of value , shoul d not be inter prete d as absol cowlitz evide nce of the prese nce or absen ce of disea se. Not Available [facility] [address], [address], 06/17/2024 23:11:38 06/16/19 25 06/17/2024 T4, FREE T4, free 1.0 NG/dL 0.8-1. 8 normal Not Available [facility] [address] [place], [address], 06/17/2024 23:11:39 06/16/19 25 06/17/2024 TSH TSH 0.78 mIU/L 0.40-4 .50 normal Not Available [facility] [address] [place], [address], 06/17/2024 23:11:40 06/16/19 25 06/17/2024 DRUG MONIT OR, BASE PANEL , SCREE N, URINE benzodiazepi marcelina POSITI VE NG/mL <100 abnormal See Note A See Note A Not Available [facility] [address] [address] [place], [address], 06/17/2024 23:11:41 06/16/19 25 06/17/2024 DRUG MONIT OR, BASE PANEL , SCREE N, URINE cocaine metabolite NEGATI VE NG/mL <150 See Note A See Note A Not Available [id number] [address] [place], [address], 06/17/2024 23:11:41 06/16/19 25 06/17/2024 DRUG MONIT OR, BASE PANEL , SCREE N, URINE opiates POSITI VE NG/mL <100 abnormal See Note A See Note A Not Available [address] [address] [address], [place], [address], 06/17/2024 23:11:41 06/16/19 25 06/17/2024 DRUG MONIT OR, BASE PANEL , SCREE N, URINE oxycodone NEGATI VE NG/mL <100 See Note A See Note A Not Available [address] [address] [address], [place], [address], 06/17/2024 23:11:41 06/16/19 25 06/17/2024 DRUG MONIT OR, BASE PANEL , SCREE N, URINE creatinine 148.3 mg/dL > or = 20.0 Not Available [address] [address] [address], [place], [address], 06/17/2024 23:11:41 06/16/19 25 06/17/2024 DRUG MONIT OR, BASE PANEL , SCREE N, URINE pH 5.1 4.5-9. 0 Not Available [address] [address] [address], [place], [address], 06/17/2024 23:11:41 06/16/19 25 06/17/2024 DRUG MONIT OR, BASE PANEL , SCREE N, URINE oxidant NEGATI VE mcg/m L <200 Not Available [address] [address] [address], [place], [address], 06/17/2024 23:11:41 06/16/19 25 06/17/2024 DRUG MONIT ORING TEMPL ATE notes and comments This drug testi ng is for medic al treat ment only. Rita sis was perfo rmed as non-f orens ic testi ng and these resul ts shoul d be used only by healt hcare provi ders to rende r diagn osis or treat ment, or to monit or progr ess of medic al condi tions . Note A: The resul ts are presu mptiv e; based only on scree noris metho ds, and they have not been confi rmed by a defin itive metho d. Healt hcare Provi ders needi ng Inter preta tion tremaine tance , pleas e conta ct us at 1.877 .40.R XTOX (1.87 [phone] .[phone] ) M-F, 8am to 10pm EST Not Available [address] [address] [place], [address], 06/17/2024 23:11:42 08/11/19 25 08/11/2024 ERYTH ROPOI ETIN (EPO) , SERUM erythropoiet in (epo), serum 4.0 mIU/m L 2.6-18 .5 Beckm an Coult er UniCe l DxI 800 Immun oassa y Syste m . Value s obtai arthur with diffe rent assay metho ds or kits canno t be used inter ross eagillian . Resul ts canno t be inter prete d as absol cowlitz evide nce of the prese nce or absen ce of lesley michaels se. Perfo rmed at: [place] [address] Lab Direc tor: Dawood spencer PhD, Phone : [phone] Not Available [facility] ([facility]) [address] [place], [address], 08/11/2024 15:10:43 08/13/19 25 08/12/2024 CT, abdom en + pelvi s, w/ contr ast [facility] [address] [place] [phone] Patien t Name: CLIFFORD CERVANTES Access ion #: [id number] Sex: M : 1975 MRN: [id number] Dictat ed By: Willy Cohn ms Attend ing Physic cedrick: ELVIS JARQUIN Orderi ng Physic cedrick: ELVIS JARQUIN CE Exam Date: 2024 08:10 AM Exam Name: CT ABDOME N PELVIS W Admitt ing Diagno sis(es ): Exam: CT ABDOME N PELVIS W Histor y: ERYTHR OCYTOS IS Compar aneta Study: None availa ble at time of dictat ion. Techni que: Multid etecto r spiral CT of the abdome n was perfor med from lung bases to pubic symphy sis. Axial imagin g was perfor med with intrav enous contra st follow ing the uneven tful admini strati on of 100 ml isovue 370. 100 mL barium oral contra st was given. Boyd l and sagitt al multip lanar reform ats were obtain ed from the axial data set by the techno logist . Radiat ion Dose : 1. Abdome n/Pelv is: CTDIvo l 15.5 mGy, DLP 810 mGy*cm . Findin gs: Lung Bases: Lung bases are clear. Visual ized portio ns of the heart and perica rdium are unrema rkable . Liver: The liver is normal in size. No focal lesion s. Gallbl adder and Biliar y Tree: The gallbl adder is unrema rkable . No intrah epatic or extrah epatic biliar y ductal dilata tion. Spleen : Unrema rkable Pancre as: The pancre as enhanc es normal ly and there are no focal lesion s. The main pancre atic duct is not dilate d Adrena l Glands : Unrema rkable Kidney s: Kidney s enhanc e symmet ricall y. No calcul i or hydron ephros is. Page 1 [facility] [address] [place] [address] Patien t Name: CLIFFORD CERVANTES Access ion #: [id number] Sex: M : 1975 MRN: [id number] Dictat ed By: Willy Cohn ms Attend ing Physic cedrick: KEIKO KEITAi ng Physic cedrick: ELVIS JARQUIN Exam Date: 2024 08:10 AM Exam Name: CT ABDOME N PELVIS W Admitt ing Diagno sis(es ): GI tract: The stomac h is grossl y normal in appear ance. No eviden ce of small bowel wall thicke noris or abnorm al dilata tion to sugges t bowel obstru ction. Sigmoi d divert iculos is withou t acute divert iculit is. The append ix is not visual ized, howeve r no inflam matory change s in the right lower quadra nt to sugges t acute append icitis . Perito neum/m esente ry/ret roperi toneum . No eviden ce of free intrap eriton eal air. No ascite s. No eviden ce of suspic ious lympha denopa thy. Abdomi nal Wall: Unrema rkable . Vascul ature: Abdomi nal aorta and main branch es are unrema rkable . Normal vascul ar enhanc ement. Urinar y Bladde r: Grossl y unrema rkable for degree of disten tion. Pelvic Organs : Unrema rkable Muscul oskele chuy: No aggres sive focal bony lesion s, acute fractu res or disloc ation. IMPRES GÉNESIS: 1. No acute abdomi nal or pelvic findin gs. 2. Sigmoi d divert iculos is withou t acute divert iculit is. Electr onical ly Signed by: Willy Cohn ms at 2024 10:49: 46 AM Page [id number] [place] [address] ([facility]) [address] [place], [address], 08/12/2024 11:53:47 Result Notes None recorded. Problems Name Problem SNOMED Code Status Onset Date Resolution Date Notes Provider Name and Address Organization Details Recorded Time Increased frequency of urination 004638435 Active 2021 Not Available [facility] 3 08:22:40 Asthma 240588133 Active Not Available [facility] 3 08:22:40 Anxiety disorder 048009150 Active Not Available [facility] 3 08:22:40 Gastroesop hageal reflux disease 277091844 Active Not Available [facility] 3 08:22:40 Urinary symptoms 276424967 Active Not Available [employer] 3 08:22:40 Right upper quadrant pain 381265200 Active Not Available [facility] 3 08:22:40 Disorder of prostate 69769206 Active 2021 Not Available [facility] 3 08:22:40 Hyperhidro sis 064708088 Active 2016 Not Available [facility] 3 08:22:40 Chronic pain syndrome 256481234 Active 2017 Not Available [facility] 3 08:22:40 Contact dermatitis 58391455 Active Not Available [facility] 3 08:22:40 Obesity 271044850 Active Not Available [facility] 3 08:22:40 IgE-mediat ed allergic asthma 913529102 Active Not Available [facility] 3 08:22:41 Herniation of nucleus pulposus 50658725 Active Not Available [facility] 3 08:22:41 Erectile dysfunctio n 134682864 Active 2021 Not Available [facility] 3 08:22:41 Pain in limb 76022685 Active Not Available [facility] 3 08:22:41 Chronic low back pain 766133966 Active 2022 ISAÍAS [place] [employer] [facility] [employer] [facility] 3 14:40:03 Hyperkalem ia, transcellu lar shifts 0438003 Active 2022 Kira Jarquin MD [address], [place], [address] , [facility] [employer] [facility] [employer] [facility] 3 15:40:13 Transient hypertensi on 58986588 Active 2022 Kira Jarquin MD [address], [place], [address] , [employer] [facility] [employer] [facility] 3 15:40:24 Obese class I 0126514452229 07 Active 2022 Kira Jarquin MD [address], [place], [address] , [employer] [facility] [employer] [facility] 3 14:55:53 Prostate specific antigen above reference range 893724767 Active 2022 Kira Jarquin MD [address], [place], [address] , [facility] 3 14:56:05 Painless rectal bleeding 980952597 Active 2023 Lilly Sandoval CMA null, [facility] 4 14:05:20 Dental abscess 051621497 Active 2023 Kira Jarquin MD [address], [place], [address] , [facility] 4 15:43:54 Essential hypertensi on 40009868 Active 2024 Kira Jarquin MD [address], [place], [address] , [facility] 5 15:53:12 Erythrocyt osis 197887106 Active 2024 Kira Jarquin MD [address], [place], [address] , [facility] 5 14:53:26 Thrombocyt openic disorder 531411080 Active 2024 Lilly Sandoval CMA null, [facility] 5 13:03:10 Notes:Some problems listed i n Document: #[id number] could not be added to this patient's chart. Please review this document and add these problems to the patient's chart manually as needed. Problem Notes None recorded. Procedures Surgical History Date Name Laterality Status Provider Name and Address Organization Details Recorded Time Neck completed Not Available [facility] 04/2022 08:19:18 Imaging Results None recorded. Procedure Notes None recorded. Medical Equipment None Reported. Medications Name Sig Start Date Stop Date Status Note LastModified by Organization Details LastModified Time Prescript ion - Prior Authoriza tion Request active [employer] APPROVAL [employer]ANA[employer] JUDITH 11-14-22 TP 11-15-23 Not Available Not Available Not Available losartan 50 mg tablet TAKE 1 TABLET BY MOUTH EVERY DAY 2024 active Not Available Not Available Not Avai lable cyclobenz aprine 10 mg tablet pt needs to call office for this medicati on 06/16 completed Not Available Not Available Not Available amoxicill in 500 mg capsule TAKE 1 CAPSULE BY MOUTH THREE TIMES A DAY FOR 10 DAYS 06/16 completed Not Available Not Available Not Available albuterol sulfate 0.63 mg/3 mL solution for nebulizat ion four times daily as needed 2012 active Not Available Not Available Not Avai lable azithromy donovan 250 mg tablet TAKE 2 TABLETS BY MOUTH TODAY, THEN TAKE 1 TABLET DAILY FOR 4 DAYS DIRECTED 06/16 completed Not Available Not Available Not Available ibuprofen 800 mg tablet TAKE 1 TABLET BY MOUTH EVERY 6 HOURS NEEDED FOR PAIN 06/16 completed Not Available Not Available Not Available alprazola m 1 mg tablet Take 1 tablet 3 times a day by oral route. 05/15 completed Not Available Not Available Not Available prednison e 20 mg tablet TAKE 3 TABLETS BY MOUTH DAILY X 3 DAYS, 2 TABS X 3 DAYS, 1 TAB X 3 DAYS, 1/2 TABS X 3 DAYS active Not Available Not Available No t Available Viagra 50 mg tablet TAKE ONE TABLET NEEDED active Not Available Not Available No t Available Zantac 300 mg tablet Take 1 tablet every day by oral route. 2012 active Not Available Not Available Not Avai lable sulfameth oxazole 800 mg-trimet hoprim 160 mg tablet TAKE 1 TABLET BY MOUTH EVERY 12 HOURS 09/12 completed Not Available Not Available Not Available sildenafi l 100 mg tablet TAKE 1 TABLET BY MOUTH NEEDED ONE HOUR BEFORE SEXUAL ENCOUNTE R 06/16 completed Not Available Not Available Not Available ondansetr on 8 mg disintegr ating tablet TAKE 1 TABLET BY MOUTH EVERY 8 HOURS NEEDED 09/04 completed Not Available Not Available Not Available amitripty line 25 mg tablet Take 1 tablet every day by oral route at bedtime. 11/28 completed Not Available Not Available Not Available tamsulosi n 0.4 mg capsule TAKE 1 CAPSULE BY MOUTH AT THE SAME TIME ONCE DAILY AFTER A MEAL (BENIGN ENLARGEM ENT OF PROSTATE ) active Not Available Not Available No t Available baclofen 10 mg tablet TAKE 1 TABLET BY MOUTH 4 TIMES A DAY active Not Available Not Available No t Available benzonata te 100 mg capsule 09/04 completed Not Available Not Available Not Available hydrocodo ne 7.5 mg-acetam inophen 325 mg tablet take one tablet four times a day for DX: M54.5 and M51.27 2024 active Not Available Not Available Not Avai lable Advair Diskus 250 mcg-50 mcg/dose powder for inhalatio n Inhale 1 puff twice a day by inhalati on route. 2012 active Not Available Not Available Not Avai lable Drysol Dab-O-Mat ic 20 % topical solution Apply HS two days a week to hands and feet 05/15 completed Not Available Not Available Not Available hydroxyzi ne HCl 25 mg tablet 09/04 completed Not Available Not Available Not Available [place] 10 mg-325 mg tablet ONE EVERY SIX HOURS NEEDED 12/31 completed Metric Qty/Days Supply Payment Type ? Pharmacy Name/ [facility] [address] [place] [address] 6 11/19/2018 ALPRAZOL AM 2 MG 90/30 Private Pay [id number]/ KIRA KAUFMAN [address] [place] [address] 6 9 HYDROCOD ONE BITARTRA TE-ACETA MINOPHEN 325 MG-10 MG 120/ 30 Private Pay [id number]/ [place] MOBLEY [address] [place] [address] 6 10/20/2018 ALPRAZOL AM 2 MG 90/30 Private Pay [id number]/ KIRA KAUFMAN [address] [place] [address] 6 9 HYDROCOD ONE BITARTRA TE-ACETA MINOPHEN 325 MG-10 MG 120/30 Private Pay [facility][id number]/ KIRA KAUFMAN [address] [place] [address] 6 9 ALPRAZOL AM 2 MG 90/30 Private Pay [id number]/ KIRA [place] [address] 6 9 HYDROCOD ONE BITARTRA TE-ACETA MINOPHEN 325 MG-10 MG 120/30 Private Pay [id number]/ [place] MOB[place] [address] [place] [address] 6 9 ALPRAZOL AM 2 MG 90/30 Private Pay [id number]/ [place] MOB[place] [address] [place] [address] 6 9 HYDROCOD ONE-ACET AMINOPHE N 10-325MG 120/30 Private Pay [facility][id number]/ [place] MOBLEY [address] [place] [address] 6 9 ALPRAZOL AM 2 MG 90/30 Private Pay [id number]/ [place] M[place] [address] [place] [address] 6 9 HYDROCOD ONE BITARTRA TE-ACETA MINOPHEN 325 MG-10 MG 120/30 Private Pay [facility][id number]/ [place] MOB[place] [address] [place] [address] 6 9 HYDROCOD ONE BITARTRA TE-ACETA MINOPHEN 325 MG-10 MG 120/30 Private Pay [facility][id number]/ [place] M[place] [address] [place] [address] 6 9 ALPRAZOL AM 2 MG 90/30 Private Pay [id number]/ [facility] KIRA MANTILLA [address] [place] [address] 6 9 HYDROCOD ONE BITARTRA TE-ACETA MINOPHEN 325 MG-10 MG 120/30 Private Pay [id number]/ [place] MOBLEY [address] [place] [address] 6 04/12/20 18 ALPRAZOL AM 2 MG 90/30 Private Pay [id number]/ [facility] KIRA JARQUIN [address] [place] [address] 6 04/02/20 18 HYDROCOD ONE BITARTRA TE-ACETA MINOPHEN 325 MG-10 MG 120/30 Private Pay [facility] #[id number]/ [facility] KIRA JARQUIN [address] [place] [address] 6 03/14/20 18 ALPRAZOL AM 2 MG 90/ 30 Private Pay [facility] #[id number]/ [facility] KIRA JARQUIN [address] [place] [address] 6 03/02/20 18 HYDROCOD ONE BITARTRA TE-ACETA MINOPHEN 325 MG-10 MG 120/30 Private Pay [facility] #[id number]/ [facility] KIRA JARQUIN [address] [place] [address] 6 01/30/20 18 HYDROCOD ONE-ACET AMINOPHE N 10MG-325 MG 120/30 Private Pay [facility] KIRA JARQUIN [address] [place] [address] 6 8 ALPRAZOL AM 2 MG 30 Private Pay [facility] #[id number]/ [facility] KIRA JARQUIN [address] [place] [address] 6 8 HYDROCOD ONE BITARTRA TE-ACETA MINOPHEN 325 MG-10 MG Private Pay [facility]SE[facility] # [id number]/ [place] KIRA JARQUIN g page 1 of 2 pagesNex t > Last Page >>1 2Number of Searches This Month: 92 Prescrip tion Monitori Program. All rights reserved . Not Available Not Available Not Available alprazola m 2 mg tablet TAKE 1 TABLET BY MOUTH TWICE A DAY FOR ANXIETY active Not Available Not Available No t Available oxycodone -acetamin ophen 7.5 mg-325 mg tablet TAKE 1 TO 2 TABLETS BY MOUTH EVERY 4 TO 6 HOURS NEEDED FOR PAIN 07/27 completed Not Available Not Available Not Available methylpre dnisolone 4 mg tablets in a dose pack Take by oral route as per package insert active Not Available Not Available No t Available albuterol sulfate HFA 90 mcg/actua tion aerosol inhaler INHALE 2 PUFFS INTO THE LUNGS EVERY 6 HOURS NEEDED FOR WHEEZE active Not Available Not Available No t Available hydroxyzi ne HCl 10 mg tablet Take by oral route four times daily PRN for itching active Not Available Not Available No t Available Ambien 5 mg tablet Take 1 tablet every day by oral route. 06/10 completed Not Available Not Available Not Available ipratropi um bromide 0.02 % solution for inhalatio n Inhale 2.5 mL every 6 hours by inhalati on route. 2013 active Not Available Not Available Not Avai lable naproxen 500 mg tablet TAKE 1 TABLET BY MOUTH TWICE A DAY 09/04 completed Not Available Not Available Not Available amoxicill in 875 mg-potass ium clavulana te 125 mg tablet 06/16 completed Not Available Not Available Not Available tadalafil 20 mg tablet Take 1 tablet by oral route. active Take 1 tablet 1 hour prior to intended activity ; limit 1 per 24 hours; do not combine with Sildenaf il Not Available Not Available Not Available Cialis 5 mg tablet Take 1 tablet every day by oral route. active Not Available Not Available No t Available GaviLyte- G 236 gram-22.7 4 gram-6.74 gram-5.86 gram oral solution 240 ML ORALLY EVERY 10 MINUTES TAKE DIRECTED PER DR. RAMOS'S WRITTEN INSTRUCT IONS 06/16 completed Not Available Not Available Not Available Paxlovid 300 mg (150 mg x 2)-100 mg tablets in a dose pack TAKE 2 NIRMATRE LVIR TABLETS AND 1 RITONAVI R TABLET BY MOUTH TWICE DAILY X5 DAYS 06/16 completed Not Available Not Available Not Available Vitals Date Recorded Body height Body mass index (BMI) Body weight Heart rate Body temperature Oxygen saturation Oxygen saturation in Arterial blood by Pulse oximetry Systolic blood pressure Diastolic blood pressure Provider Name and Address Organization Details Last Updated DateTime 5 182.88 cm 30.8 kg/m2 472778. 47 g 82 /min 97 [degF] 98 % 98 % 160 mm[Hg] 100 mm[Hg] Jeal Israel [facility] [employer] [facility] 5 15:29:48 Date Recorded Body height Body mass index (BMI) Body weight Heart rate Body temperature Oxygen saturation Oxygen saturation in Arterial blood by Pulse oximetry Systolic blood pressure Diastolic blood pressure Provider Name and Address Organization Details Last Updated DateTime 5 182.88 cm 28.6 kg/m2 99958.9 9 g 85 /min 97 [degF] 97 % 97 % 122 mm[Hg] 80 mm[Hg] [facility] [employer] [facility] 5 14:50:44 Date Recorded Body height Body mass index (BMI) Body weight Heart rate Oxygen saturation Oxygen saturation in Arterial blood by Pulse oximetry Body temperature Systolic blood pressure Diastolic blood pressure Provider Name and Address Organization Details Last Updated DateTime 3 182.88 cm 34.1 kg/m2 717948. 48 g 101 /min 97 % 97 % 97 [degF] 144 mm[Hg] 100 mm[Hg] [facility] [employer] [facility] 3 15:16:57 Date Recorded Body mass index (BMI) Body height Oxygen saturation Oxygen saturation in Arterial blood by Pulse oximetry Heart rate Respiratory rate Body temperature Body weight Systolic blood pressure Diastolic blood pressure Provider Name and Address Organization Details Last Updated DateTime 2 31.7 kg/m2 182.88 cm 98 % 98 % 75 /min 12 /min 97.2 [degF] 337373. 82 g 122 mm[Hg] 78 mm[Hg] Not Available [facility] 3 08:22:00 Date Recorded Body height Body mass index (BMI) Body weight Body temperature Systolic blood pressure Diastolic blood pressure Provider Name and Address Organization Details Last Updated DateTime 3 182.88 cm 34.6 kg/m2 867589. 05 g 97.6 [degF] 122 mm[Hg] 88 mm[Hg] Rachel Epps LPN [facility] [employer] [facility] 3 14:35:37 Social History Question Answer Notes LastModified by Organizat ion Details LastModified Time Tobacco Smoking Status Never Smoker Not Available [facility] 06/18/2022 08:19:16 What Is Your Level Of Caffeine Consumption? Moderate [id number] Information not available 06/18/2022 Has Tobacco Cessation Counseling Been Provided? No [id number] Information not available 06/18/2022 Sex: Unknown Functional Status Question Answer Note LastModified by Organizat ion Details LastModified Time Do you use any illicit or recreational drugs? No [id number] Information not available 06/18/2022 Do you or have you ever used any other forms of tobacco or nicotine? No [id number] Information not available 06/18/2022 What is your level of alcohol consumption? None [id number] Information not available 06/18/2022 What is your occupation? construction [id number] Information not available 06/18/2022 Mental Status None recorded. Family History Relationship Description Onset Age of this Age Resolved Age Notes LastModified by Organization Details LastModified Time Father Diabetes mellitus [id number] Not available 06/18/2022 08:19:21 Father Kidney stone [id number].0 [id number] Not available 06/18/2022 08:19:21 Father Heart disease [id number] Not available 06/18/2022 08:19:21 Father Hypertensive disorder [id number] Not available 06/18/2022 08:19:21 Notes:Mother 68 good health Father 68 HTN, DM, CVA and Cholesterol Two brothers living and in good health Medical History Condition Response NERVE DISEASE N BLINDNESS N RHEUMATIC FEVER N KIDNEY STONES N BLADDER PROBLEMS N MRSA N OTHER # 1 N POLIO N LUNG DISEASE/DISORDER N RADIATION / CHEMOTHERAPY N COPD N Other # 2 N BLOOD DISEASES N SURGERY N EAR OR HEARING PROBLEMS N MUMPS N BOWEL PROBLEMS N DEPRESSION (INCLUDING POST ) Y STROKE/TIA N ULCERS N BENIGN PROSTATIC HYPERPLASIA N MEASLES N MYOCARDIAL INFARCTION N OBESITY Y GERD/NAUSEA Y ANEURYSM N URINARY/BLADDER/KIDNEY PROBLEMS N CORONARY ARTERY DISEASE (CAD) N ADDICTION CONCERNS N ENDOMETRIOSIS N Impotence N USE OF BLOOD THINNERS N SKIN PROBLEMS N GASTROINTESTINAL DISORDER N PERIPHERAL VASCULAR DISEASE N MUSCLE,JOINT OR BONE PROBLEMS N GASTROINTESTINAL BLEEDING N BLOOD CLOTS N ASTHMA Y CATARACTS N ERECTILE DYSFUNCTION N VARICOSITIES N GI PROBLEMS N Low Testosterone N INFERTILITY N AIDS/HIV N CHEMOTHERAPY / RADIATION N LIVER DISEASE N MALE HYPOGONADISM N HYPERTENSION N Deficiency N ANXIETY DISORDER Y BLOOD TRANSFUSION N ANEMIA/BLOOD DISORDER N CHRONIC EAR INFECTIONS N BRONCHITIS N TUBERCULOSIS N GLAUCOMA N FOOT PROBLEM N DIVERTICULITIS N SLEEP APNEA N CHICKENPOX N INFECTIOUS DISEASE N HEART ARRHYTHMIA N PROSTATE N INSOMNIA N HIGH CHOLESTEROL / HYPERLIPIDEMIA N HYPERTHYROIDISM N EYE PROBLEMS N NEUROLOGICAL PROBLEMS N EDEMA N CHRONIC PAIN SYNDROME Y HYPOTHYROIDISM N CAROTID BLOCKAGE N CONSTIPATION N BACK / NECK PROBLEMS Y HAVE YOU BEEN HOSPITALIZED OR SEEN IN [facility] IN THE PAST YEAR ? N ATHEROSCLEROSIS N BREAST PROBLEMS N DIALYSIS N ECZEMA N OSTEOPOROSIS N ARTHRITIS N NO SIGNIFICANT PAST MEDICAL HISTORY N APPENDICITIS N DIABETES, TYPE N BAD TEETH N ENT N HEARTBURN / REFLUX N AUTISM SPECTRUM DISORDER (ASD) N HEPATITIS / LIVER DISEASE N GOUT N SLEEP DISORDER N ALZHEIMER'S DISEASE N Brain Problems N HERPES N DEMENTIA N HEADACHES/MIGRAINES N SEIZURES/EPILEPSY Y VASCULAR DISEASE N PACEMAKER N Blood Disorder N DIZZINESS N HEART DISEASE/HEART PROBLEMS N KIDNEY DISEASE N MULTIPLE SCLEROSIS N CARDIAC ARRHYTHMIA N CANCER: SPECIFY N ATRIAL FIBRILLATION N Gall Stones N PULMONARY EMBOLISM N AUTOIMMUNE DISEASE N Immunizations Vaccine Type Date Status Note Provider Nam e and Address Organization Details Recorded Time SARS-COV-2 (COVID-19) vaccine, UNSPECIFIED completed Not Available [facility] 06/18/2022 08:25:57 COVID-19, mRNA, LNP-S, PF, 100 mcg/0.5mL dose or 50 mcg/0.25mL dose completed Not Available [facility] 06/18/2022 08:25:57 Past Encounters Encounter ID Performer Location Encounter Start Date Encounter Closed Date Diagnosis/Indication Diagnosis SNOMED-CT Code Diagnosis ICD10 Code Diagnosis Note [id number] Kira Jarquin MD [facility] Internal Med [address] [place] [address] 07/27/2020 00:00:00 07/27/2020 14:50:32 [id number] Kira Jarquin MD [facility] [place] [address] [place] [address] 10/05/2020 00:00:00 10/05/2020 10:47:41 [id number] Kira Jarquin MD [facility] [place] [address] [place] [address] 11/02/2020 00:00:00 11/02/2020 16:40:56 [id number] Kira Jarquin MD [facility] Internal Med [address] [facility] [place] [address] 04/26/2021 00:00:00 04/26/2021 11:03:07 [id number] Arvin Feliciano MD [facility] [address] [facility] [address] [place] [address] 09/04/2021 00:00:00 09/04/2021 11:23:02 [id number] Kira Jarquin MD [facility] Internal Med [facility] [address] [facility] [place] [address] 10/28/2021 00:00:00 10/28/2021 11:55:14 [id number] Kira Jarquin MD [facility] Internal Med [address] [facility] [place] [address] 09/12/2022 14:45:35 09/12/2022 15:52:23 Adult health examination [id number] Z00.00 Depression screening 171 614748 Z13.31 Chronic pain syndrome 37 4509982 G89.4 Transient hypertension 27472032 I10 Disorder of prostate 302 45161 N42.9 Long-term current use of opiate analgesic drug [id number] 30012 Z79.265 [id number] Kiar Jarquin MD [facility] Internal Med Jarett hanna [address] [place] [address] [place] [address] 04/14/2023 14:28:05 04/14/2023 15:03:24 Asthma [id number] J45.909 Chronic pain syndrome 37 8937033 G89.4 Obese class I [id number] 25376 E66.9 Prostate s pecific antigen above reference range 229138863 R97.20 Long-term current use of opiate analgesic drug [id number] 22876 Z79.548 [id number] Kira Jarquin MD [facility] [address] [facility] [address] [place] [address] 06/16/2024 15:03:03 06/16/2024 16:12:44 Essential hypertension 14998732 I10 Anxiety disorder 4227307 06 F41.9 Chronic pain syndrome 37 8646837 G89.4 Disorder of prostate 302 63276 N42.9 Asthma 299148517 J45.90 9 Obese class I [id number] 44582 E66.9 Long-term current use of opiate analgesic drug [id number] 85172 Z79.877 [id number] Kira Jarquin MD [facility] Internal Med [address] [facility], [address] [place] [address] 08/10/2024 14:31:19 08/10/2024 15:31:47 Erythrocytosis 843002435 D75.1 Essential hypertension 94350754 I10 Asthma 884853360 J45.90 9 Chronic pain syndrome 37 6557168 G89.4 Health Concerns Section Related Observation LastModified by Organization Detai ls LastModified Time None Recorded Concern Status LastModified by Organization Details LastModified Time None Recorded Advance Directives Directive None Recorded Payers Insurance Date Sequence Insurance Name Policy Number Policy Ham Covered Member ID Ham Member ID Guarantor Name 09/06/2024 1 [facility] (MEDICAID HMO) [id number] Clifford Cervantes [id number] Clifford Cervantes 06/16/2024 1 [place] [employer] [employer] Clifford Cervantes [id number] Clifford Cervantes 06/16/2024 1 [facility] - [employer] - CIG (PPO) [id number] Clifford Cervantes [id number] Clifford Cervantes Notes Date Note Type Note Provider Name and Address Organization Details Recorded Time 3 text/html Patient Name: Clifford Walkerate Of Service: Thursday ( 09.12.2022 ): 1975 Age: 46 There has been approximately a 18 lb weight gain since 10/28/2021. This represents approximately a 7.7% change in weight. Weight change attributable to lifestyle changes. Vital Signs:Blood Pressure: Sitting Rt. Arm 144/100Pulse: Sitting 100 /min and RegularRespirations: 12Height 72 in or 1.8 mWeight 251.5 lb or 114.1 kgBMI 34.1Temperature: 97 F or 36.1 CPulse Oximetry: 97 % at rest on no oxygen Chief Complaint: Addressed in HPI Problems or conditions discussed in the HPI were the only ones reviewed during the encounter.Only social and family history addressed in the HPI were reviewed during this encounter. Attendant(s): None Constitutional and Systemic Symptoms: none Medication Reconciliation: by patient. History of Present Illness In for a well patient check up. Last well patient evaluation was approximately one year. No interval complaints of any new major medical problems. No hx of any chest pain, shortness of breath, nausea, vomiting, diarrhea or constitutional symptoms.PSA orderedColonoscopy or Cologuard: dueImmunizations Up To Date or refuses to takeNo Significant Change In Family HxFall Risk normalDepression Score: 0Hearing normalVisual normalReviewed Smoking and Drug HistoryReviewed Immunization HistoryInstructed on importance of weight on diabetes, heart and other diseases aggravated by obesity.Instructed on importance of weight on diabetes, heart and other diseases aggravated by obesity. #1. Essential Hypertension: Stage: Stage I Interval Neurological Complaints no headaches. No shortness of breath, orthopnea or cardiovascular symptoms. No other symptoms related to end organ damage. Pressure has been under poor control. Currently elevated. No other end organ symptoms or findings. Therapy reviewed regarding management of hypertension and includes salt restriction. #2. Chronic pain management for chronic lumbar Since last examination somewhat improved Interval Testing: noneHas tried NSAIDS partial relief requiring additional medication. Pain Description: constant. Severity: 5 ]. Currently seeing or has seen in the past a Fence Post Cutter: NoPain - Enjoyment of Life - General Activity ScalePain on Average: 5Enjoyment of Live: 5General Activity: 4Score: 5Currently regimen consists of Flexeril, [place] and Xanax as prescribed with no evidence of abuse or self prescribing. Current Average Morphine Milligram Approximate Equivalent: 30 mg approximated if taking full dosage daily. Recommend: NABenzodiazepines or other hypnotics: yes and have discussed reducing doseAlternative pain management modalities (acupuncture - behavior therapy- additional PT - SNRIs) have been discussed and have either been tried in the past or not acceptable alternatives to patient or not available in our location.Will kept medications the same.Urine Testing: will be performed and patient instructed that failure of testing within a 24 hour period from time of order may result in termination of medication.Controlled substance database yes and no discrepancies or multiple prescribers noted.Patient reports condition is stable and is able to function with the medication. Denies any misuse or adverse effects.TREATMENT OBJECTIVE: Enhance ability to manage pain independently, improved function and sustain quality of life. Recommendations or alternative therapies and lifestyle changes are discussed on each visit. Has shown improvement inf functionality. Has been educated on the side effects,risks and any black box warnings. Has verbalized the dangers of some of the medications regarding driving and cooperating heavy machinery and have advised against this. . #3. Hx of obesity. Currently Class 1 Obesity BMI 30-34.99. Has tried numerous dietary support and supplements with no benefit. Instructed on the health consequences of the obese status particularly cancer - diabetes and heart disease. Discussed new modalities of weight loss including GLP-1 medications that are used to treat diabetes. Potential candidate for bariatric surgery: No. Wishes to be evaluated by Dietary: No and was offered to be evaluated and instructed by vice president safety on weight loss diet.Medication List Reviewed and Reconciled 09/12/2022Flexeril 10 MG (TABLET - ORAL) One Three Times A DayNorco 325 MG-7.5 MG (TABLET - ORAL) Every Six Hours As NeededXanax 2 MG (TABLET - ORAL) One Twice A DayProventil 0.09 MG /INH (AEROSOL, METERED - INHALATION) Two Puffs QidVaccination and Ofefofdjglis8689-26 Covid Nintma3752-10 InfluenzaSurgical HistoryLt. Hand SurgeryPreventative Testing Confirmed by Our Lghrffh3010/28/2021 ALBUMIN 4.7 G/DL10/28/2021 PSA 2.15 NG/ML09/13/2019 PSA11/02/2012 CT CVIIKN1507/02/2012 UPPER ENDOSCOPYSocial HistorySmokes 1/2 pack daily for 10 yearsDoes not drinkWorks as rooferFamily HistoryMother 68 good healthFather 68 HTN, DM, CVA and CholesterolTwo brothers living and in good health Kria Jarquin MD [address] [facility], [facility] [address], [place], [address], [facility] [employer] 09/12/2022 15:48:48 3 text/html Patient Name: Clifford Collazo Of Service: Thursday ( 04.14.2023 ): 1975 Age: 47 There has been approximately a 3.5 lb weight gain since 09/12/2022. This represents approximately a 1.4% change in weight. Weight change attributable to lifestyle changes. Vital Signs:Blood Pressure: Sitting Rt. Arm 122/88Pulse: Sitting 80 /min and RegularRespiratory Rate: 12Height 72 in or 1.8 mWeight 255 lb or 115.7 kgBMI 34.6Temperature: 97.6 F or 36.4 C Chief Complaint: Addressed in HPI Problems or conditions discussed in the HPI were the only ones reviewed during the encounter.Only social and family history addressed in the HPI were reviewed during this encounter. Attendant(s): NoneConstitutional and Systemic Symptoms:none Medication Reconciliation: from medication list. History of Present Illness #1. Hx of asthma. Daily medications: Proventil. Uses bronchodilators very infrequently. Night time exacerbations: less than 2 times monthly There has been no cough, congestion, or sputum production. No changes in exercise tolerance. Denies any fever or chills. Tolerating the medications without problems. The current status could be classified as Intermittent asthma. Using nebulizer Treatments: No. #2. Chronic pain management for chronic lumbar Since last examination somewhat improved Interval Testing: noneHas tried NSAIDS partial relief requiring additional medication. Pain Description: constant. Currently seeing or has seen in the past a Fence Post Cutter: No .Pain - Enjoyment of Life - General Activity ScalePain on Average: 4Enjoyment of Live: 4General Activity: 5Enjoyment of Life - General Activity Scale: 4Currently regimen consists of medications as prescribed with no evidence of abuse or self prescribing. Current Average Morphine Milligram Approximate Equivalent: 30 mg approximated if taking full dosage daily. Recommend: NA.Benzodiazepines or other hypnotics: yes and have discussed reducing dose.Alternative pain management modalities (acupuncture - behavior therapy- additional PT - SNRIs) have been discussed and have either been tried in the past or not acceptable alternatives to patient or not available in our location.Will reducing dosing interval and later strength.Urine Testing: will be performed and patient instructed that failure of testing within a 24 hour period from time of order may result in termination of medication.Controlled substance database yes and no discrepancies or multiple prescribers noted. Pill counts when available have been acceptable. No other signs of any abuse.Patient reports condition is stable and is able to function with the medication. Denies any misuse or adverse effects.TREATMENT OBJECTIVE: Enhance ability to manage pain independently, improved function and sustain quality of life. Recommendations or alternative therapies and lifestyle changes are discussed on each visit. Has shown improvement inf functionality. Has been educated on the side effects,risks and any black box warnings. Has verbalized the dangers of some of the medications regarding driving and cooperating heavy machinery and have advised against this. #3. Hx of obesity. Currently Class 1 Obesity BMI 30-34.99. Has tried numerous dietary support and supplements with no benefit. Instructed on the health consequences of the obese status particularly cancer - diabetes and heart disease. Discussed new modalities of weight loss including GLP-1 medications that are used to treat diabetes. Potential candidate for bariatric surgery: No. Wishes to be evaluated by Dietary: No and was offered to be evaluated and instructed by vice president safety on weight loss diet.Medication List Reviewed and Reconciled 04/14/2023Norco 325 MG-7.5 MG (TABLET - ORAL) Every Six Hours As NeededXanax 1 MG TABLET One TidProventil 0.09 MG /INH (AEROSOL, METERED - INHALATION) Two Puffs QidVaccination and Jpipufqdpkts9356-08 Covid Pnrgiv5262-49 InfluenzaSurgical HistoryLt. Hand SurgeryPreventative Testing Confirmed by Our Dszktxq9509/12/2022 ALBUMIN 4.3 G/DL N009/12/2022 PSA 2.38 NG/ML N011/02/2012 CT YNLKMY6607/02/2012 UPPER ENDOSCOPYSocial HistorySmokes 1/2 pack daily for 10 yearsDoes not drinkWorks as rooferFamily HistoryMother 68 good healthFather 68 HTN, DM, CVA and CholesterolTwo brothers living and in good health Kira Jarquin MD [address] [facility], [facility] [address], [place], [address], [facility] [employer] 04/14/2023 14:59:22 5 text/html Patient Name: Clifford Collazo Of Service: May ( 06.16.2024 ): 1975 Age: 48 There has been approximately a 28 lb weight loss since 04/14/2023. This represents approximately a 11.0% change in weight. Weight change attributable to lifestyle changes. Vital Signs:Blood Pressure: Sitting Rt. Arm 160/100Pulse: Sitting 82 /min and RegularRespiratory Rate: 16Height 72 in or 1.8 mWeight 227 lb or 103.0 kgBMI 30.8Temperature: 97 F or 36.1 CPulse Oximetry: 98 % at rest on no oxygen Chief Complaint: Addressed in HPI Problems or conditions discussed in the HPI were the only ones reviewed during the encounter.Only social and family history addressed in the HPI were reviewed during this encounter. Attendant(s): NoneConstitutional and Systemic Symptoms:none Medication Reconciliation: from medication list. [id number]: Colonoscopy demonstrated a single large pedunculated polyp in the sigmoid colon. There was no bleeding. Some internal hemorrhoids were noted. History of Present Illness #1. Essential Hypertension: Stage: normal Interval Neurological Complaints no headaches. No shortness of breath, orthopnea or cardiovascular symptoms. No other symptoms related to end organ damage. Pressure has been under poor control. Currently elevated and instructed to recheck in office in two weeks. No other end organ symptoms or findings. Therapy reviewed regarding management of hypertension and includes salt restriction and started Losartan Potassium. #2. Anxiety Disorder: History of anxiety disorder. There has been no panic attacks. No interval complaints of any vegetative or other signs of depression. Taking Xanax. Discussed possibility of decreasing and weaning off medication. Feels that current regimen is working fine and wishes not to change the current treatment regimen. Medication not causing any sedation or cognitive dysfunction and there is no contraindication to continue current therapy. #3. History of some chronic prostate abnormalities. Has had an elevated PSA in the past for his age. Currently he has noticed some intermittent problems with decreasing urinary stream but nothing on a regular basis. Has noticed on occasion some nocturia but nothing on any regular nightly basis.: #4. Hx of asthma. Daily medications: none. Uses bronchodilators very infrequently. Night time exacerbations: less than 2 times monthly There has been no cough, congestion, or sputum production. No changes in exercise tolerance. Denies any fever or chills. Tolerating the medications without problems. The current status could be classified as Intermittent asthma. Using nebulizer Treatments: No. #5. Chronic pain management for chronic lumbar, knees and hips Since last examination no significant change since last examination Interval Testing: noneHas tried NSAIDS partial relief requiring additional medication. Pain Description: constant - intermittently exacerbated, exacerbated by activity and interferes with enjoyment and ability to perform activities of daily living. Currently seeing or has seen in the past a Fence Post Cutter: Yes .Pain - Enjoyment of Life - General Activity ScalePain on Average: 5Enjoyment of Live: 4General Activity: 5Enjoyment of Life - General Activity Scale: 5Currently regimen consists of [place] as prescribed with no evidence of abuse or self prescribing. Current Average Morphine Milligram Approximate Equivalent: 30 mg approximated if taking full dosage daily. Recommend: Recommended but declined.Benzodiazepines or other hypnotics: yes and have discussed reducing dose.Alternative pain management modalities (acupuncture - behavior therapy- additional PT - SNRIs) have been discussed and have either been tried in the past or not acceptable alternatives to patient or not available in our location. Once again address the possibility that these medications may cause some cognitive impairment at times. Has noticed no cognitive impairment. Instructed to let us know if any of the conditions arise I will need to consider reducing or stopping certain medication.Will kept medications the same.Urine Testing: will be performed and patient instructed that failure of testing within a 24 hour period from time of order may result in termination of medication.Controlled substance database yes and no discrepancies or multiple prescribers noted. Pill counts when available have been acceptable. No other signs of any abuse.Patient reports condition is stable and is able to function with the medication. Denies any misuse or adverse effects.TREATMENT OBJECTIVE: Enhance ability to manage pain independently, improved function and sustain quality of life. Recommendations or alternative therapies and lifestyle changes are discussed on each visit. Has shown improvement inf functionality. Has been educated on the side effects,risks and any black box warnings. Has verbalized the dangers of some of the medications regarding driving and cooperating heavy machinery and have advised against this. #6. Hx of obesity. Currently Class 1 Obesity BMI 30-34.99. Has tried numerous dietary support and supplements with no benefit. Instructed on the health consequences of the obese status particularly cancer - diabetes and heart disease. Discussed other modalities of weight loss no . Potential candidate for bariatric surgery: No. Wishes to be evaluated by Dietary: No and was offered to be evaluated and instructed by vice president safety on weight loss diet. Active Medication ListNorco 325 MG-7.5 MG (TABLET - ORAL) Every Six Hours As NeededXanax 1 MG TABLET One TidProventil 0.09 MG /INH (AEROSOL, METERED - INHALATION) Two Puffs QidLosartan Potassium 50 MG TABLET One Daily Vaccination and Immunization(X) 2004- INFLUENZA(X) 2020- COVID [email or web address] Surgical Qouvdbq2961-35 Lt. Hand Surgery Preventative Testing( ) 10/21/2023 Colonoscopy ( 3 Years ) 10/20/2026(X) 04/14/2023 PSA 2.49 NG/ML 04/14/2024( ) 09/12/2022 Albumin 4.3 G/DL N( ) 11/02/2012 CT Thorax( ) 07/02/2012 Upper Endoscopy Social HistorySmokes 1/2 pack daily for 10 yearsDoes not drinkWorks as supply chain coordinator Family HistoryMother 68 good healthFather 68 HTN, DM, CVA and CholesterolTwo brothers living and in good health Kira Jarquin MD [address] [facility], [facility] [address], [place], [address], [facility] [employer] 06/16/2024 16:02:19 5 text/html Patient Name: Clifford Collazo Of Service: Thursday ( 08.10.2024 ): 1975 Age: 48 There has been approximately a 16 lb weight loss since 06/16/2024. This represents approximately a 7.0% change in weight. Weight change attributable to lifestyle changes. Vital Signs:Blood Pressure: Sitting Rt. Arm 122/84Pulse: Sitting 85 /min and RegularRespiratory Rate: 16Height 72 in or 1.8 mWeight 211 lb or 95.7 kgBMI 28.6Temperature: 97 F or 36.1 CPulse Oximetry: 97 % at rest on no oxygen Chief Complaint: Addressed in HPI Problems or conditions discussed in the HPI were the only ones reviewed during the encounter.Only social and family history addressed in the HPI were reviewed during this encounter. Attendant(s): NoneConstitutional and Systemic Symptoms:none Medication Reconciliation: from medication list. [id number]: Colonoscopy demonstrated a single large pedunculated polyp in the sigmoid colon. There was no bleeding. Some internal hemorrhoids were noted. History of Present Illness #1. Persistent elevation of the hematocrit now up to 55%. Will need further evaluation to rule out primary erythrocytosis or polycythemia vera. No other systemic symptomatology. Has unexplained weight loss although the recent blood work showed no evidence of diabetes or overactive thyroid. He has had no change in bowel habits or any thing suggestive of excessive metabolism or malabsorption: #2. Essential Hypertension: Stage: normal Interval Neurological Complaints no headaches. No shortness of breath, orthopnea or cardiovascular symptoms. No other symptoms related to end organ damage. Pressure has been under fair control. Currently normal. No other end organ symptoms or findings. Therapy reviewed regarding management of hypertension and includes salt restriction and Losartan Potassium. #3. Hx of asthma. Daily medications: none. Uses bronchodilators very infrequently. Night time exacerbations: 3-4 times monthly There has been no cough, congestion, or sputum production. No changes in exercise tolerance. Denies any fever or chills. Tolerating the medications without problems. The current status could be classified as Intermittent asthma. Using nebulizer Treatments: No. #4. Chronic pain management for chronic lumbar Since last examination somewhat improved Interval Testing: noneHas tried NSAIDS partial relief requiring additional medication. Pain Description: constant, exacerbated by activity and interferes with enjoyment and ability to perform activities of daily living. Currently seeing or has seen in the past a Fence Post Cutter: Yes .Pain - Enjoyment of Life - General Activity ScalePain on Average: 5Enjoyment of Live: 5General Activity: 4Enjoyment of Life - General Activity Scale: 5Currently regimen consists of [place] as prescribed with no evidence of abuse or self prescribing. Current Average Morphine Milligram Approximate Equivalent: 30 mg approximated if taking full dosage daily. Recommend: NA.Benzodiazepines or other hypnotics: yes and have discussed reducing dose.Alternative pain management modalities (acupuncture - behavior therapy- additional PT - SNRIs) have been discussed and have either been tried in the past or not acceptable alternatives to patient or not available in our location. Once again address the possibility that these medications may cause some cognitive impairment at times. Has noticed no cognitive impairment. Instructed to let us know if any of the conditions arise I will need to consider reducing or stopping certain medication.Will kept medications the same.Urine Testing: not indicated and this time.Controlled substance database yes and no discrepancies or multiple prescribers noted. Pill counts when available have been acceptable. No other signs of any abuse.Patient reports condition is stable and is able to function with the medication. Denies any misuse or adverse effects.TREATMENT OBJECTIVE: Enhance ability to manage pain independently, improved function and sustain quality of life. Recommendations or alternative therapies and lifestyle changes are discussed on each visit. Has shown improvement inf functionality. Has been educated on the side effects,risks and any black box warnings. Has verbalized the dangers of some of the medications regarding driving and cooperating heavy machinery and have advised against this. Active Medication ListNorco 325 MG-7.5 MG (TABLET - ORAL) Every Six Hours As NeededXanax 1 MG TABLET One TidProventil 0.09 MG /INH (AEROSOL, METERED - INHALATION) Two Puffs QidLosartan Potassium 50 MG TABLET One Daily Vaccination and Immunization(X) 2004- INFLUENZA(X) 2020- COVID [email or web address] Surgical Pkvdmia0548-07 Lt. Hand Surgery Preventative Testing( ) 06/16/2024 Albumin 4.9 G/DL N( ) 06/16/2024 PSA 1.71 NG/ML N 06/16/2025( ) 10/21/2023 Colonoscopy ( 3 Years ) 10/20/2026( ) 11/02/2012 CT Thorax( ) 07/02/2012 Upper Endoscopy Social HistorySmokes 1/2 pack daily for 10 yearsDoes not drinkWorks as supply chain coordinator Family HistoryMother 68 good healthFather 68 HTN, DM, CVA and CholesterolTwo brothers living and in good health Kira Jarquin MD [address] [facility], [address], [place], [address], [facility] [employer] 08/10/2024 15:01:17
--- OUTSIDE RECORDS SUMMARY | 2024-09-29 11:06 | XMS_ITS | Clinical Summary ---
Author Organization [facility] [employer] Address [address] [place] [address] Care Team Providers Care Manager Of Construction Name Role Phone Galileo Jarquin MD Primary Care Provider Galileo Jarquin MD Unavailable [phone] Source Comments [facility] [employer],non-owned Affiliates and Associated Physician Practices is amultiple site organization consisting of ambulatory clinics and hospital sitesin [place], [place], [place] and [place]. This disclosure is being madepursuant to the Care Everywhere program and may not contain all information available regarding this patient. Last updated 18.[facility] [employer] Allergies No known active allergies Medications * [...] Telephone [facility] - Urology [address] [place] [address] Grisel Joyce DO Surgery Scheduling (Attempted to reach the patient to schedule surgery/procedure with Grisel Joyce DO. Left voicemail to return my call ALEXANDRA, sendign NPL as I have yet to hear back in over 30 days. Cassandra Pack 09/27/2024 4:55 PM ) 08/16/2024 Telephone [facility] - [facility]rology [address] [place] [phone] Grisel Joyce DO Surgery Scheduling (Attempted to reach the patient to schedule surgery/procedure with Grisel Joyce DO. Left voicemail to return my call ALEXANDRA Trujillogerardo Pack 08/16/2024 9:47 AM ) 08/11/2024 2:30 PM CDT Office Visit [facility] - Urology [address] [place] [address] [address] [place] [id number] Grisel Joyce DO Impotence due to erectile dysfunction (Primary Dx); Erectile dysfunction due to diseases classified elsewhere; Neuropathy; Pre-op testing 08/11/2024 Travel 07/07/2024 Telephone [facility] - Centralized Scheduling [address] [place] [address] Grisel Joyce DO Appointment (Spk to Lauren, [...] on file Legal Sex Male 2:23 PM [employer]CIAL [employer] Gender Identity Not on file Sexual Orientation [...] QUEST Comment: CULTURE, URINE, ROUTINE Micro Number: [id number] Test Status: Final Specimen Source: Urine, clean catch Specimen Quality: Adequate Result: Less than 10,000 CFU/mL of single Gram positive organism isolated. No further testing will be performed. If clinically indicated, recollection using a method to minimize contamination, with prompt transfer to Urine Culture Transport Tube, is recommended. Test Performed at: [facility] [address] BAUDILIO WOOD MD Urine URINE SPECIMEN OBTAINED BY CLEAN CATCH PROCEDURE / Unknown 08/11/2024 4:04 PM CDT 08/12/2024 1:04 AM CDT us Grisel Joyce DO LAB - MICROBIOLOGY ORDERAB LES Final Result [address] [id number] from Last 3 Months Insurance [facility] SELF PAY NO INSURANCE Member Subscriber Plan / Payer (Ef fective for All Dates) Name:Lauren Cervantes Member ID:Not on file Relation to Subscriber:Not on file Name:LAUREN CERVANTES Subscriber ID:Not on file (Home) Address: [address] [place] [address] Payer ID:Not on file Group ID:Not on file Type:Self Pay Address: [place], [place] [facility] SELF PAY NO INSURANCE Member Subscriber Plan / Payer (Ef fective for All Dates) Name:Lauren Cervantes Member ID:Not on file Relation to Subscriber:Not on file Name:LAUREN CERVANTES Subscriber ID:Not on file (Home) Address: [address] [place] [address] Payer ID:Not on file Group ID:Not on file Type:Self Pay Address: [place], [place] * Guarantor: LAUREN CERVANTES Account Type Relation to Patient Date of Phone Billing Address Personal/Family 1975 [address] [place] [address] [facility] SELF PAY NO INSURANCE Member Subscriber Plan / Payer (Ef fective for All Dates) Name:Lauren Cervantes Member ID:Not on file Relation to Subscriber:Not on file Name:LAUREN CERVANTES Subscriber ID:Not on file (Home) Address: [address] [place] [address] Payer ID:Not on file Group ID:Not on file Type:Self Pay Address: [place], [place] Care Teams Manager Of Construction Relationship Specialty Start Date End Date Galileo Jarquin MD [address] [place] [phone] PCP - General 10/12/20 Galileo Jarquin MD [address] [place] [phone] Internal Medicine 10/12/20
[2024-09-29] MEDS: methocarbamoL 500 MG TABLET 1000 MG PO (11:45)
[2024-09-29] MEDS: KETOROLAC 30 MG/ML VIAL (*BKC) IV PUSH (11:45)
[2024-09-29] MEDS: LIDOCAINE 5% PATCH 1 PATCH TRANSDERM (11:46)
[2024-09-29] MEDS: ACETAMINOPHEN 500 MG TABLET 1000 MG PO (11:46)
== END 2024-09-29 12:37 | disposition home or self-care (01) ==
PROVIDERS: Preventive Medicine Aerospace Medicine; Emergency Provider Physician Assistant; PCP Internal Medicine
DX: S39.012A Strain of muscle, fascia and tendon of lower back, initial encounter (principal); F41.9 Anxiety disorder, unspecified; M47.816 Spondylosis without myelopathy or radiculopathy, lumbar region; N20.0 Calculus of kidney; Z79.899 Other long term (current) drug therapy; X50.9XXA Other and unspecified overexertion or strenuous movements or postures, initial encounter
CPT/HCPCS: 36415; 72131; 74176; 80053; 81003; 85025; 96374; 96375; 99284; A9270; J1885; J2270; J2405; J3360